=== PATIENT | female | born 1940 | race Caucasian/White ===

== ENCOUNTER 2017-10-20 12:05 | Outpatient (CLI) | payer MEDICARE, OTHER | END 2017-10-20 12:06 | disposition critical access hospital (66) | LOC: EMS 12:05 | PROVIDERS: ATTEND Surgery | DX: R55 Syncope and collapse (principal); R06.00 Dyspnea, unspecified; R05 Cough; R50.9 Fever, unspecified; R19.7 Diarrhea, unspecified | CPT/HCPCS: A0425; A0427 ==

== ENCOUNTER 2017-10-20 12:23 | Observation (INO) | payer MEDICARE, OTHER ==
--- NOTE | 2017-10-20 12:41 | ED Physician Documentation ---
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 Today she was on the commode and she felt weak and lightheaded and slumped to the ground. Her daughter was there in attendance she did not have complete syncope. Review of Systems Constitutional: reports: Fever, Chills, Myalgias, Fatigue, Sweats Eyes: denies: Decreased vision Ears: denies: Ear pain Nose: reports: Congestion. denies: Rhinorrhea / runny nose Throat: denies: Sore throat Cardiac: denies: Chest pain / pressure, Palpitations, Pedal edema, Calf pain Respiratory: reports: Dyspnea, Cough, Wheezing GI: denies: Abdominal Pain, Nausea, Vomiting : denies: Dysuria Skin: denies: Rash Musculoskeletal: denies: Neck pain, Back pain, Extremity pain Neurologic: reports: Generalized weakness, Near syncope. denies: Focal weakness , Numbness PD PAST MEDICAL HISTORY - Past Medical History Past Medical History: Yes Cardiovascular: None Respiratory: None Neuro: None HEENT: None Derm: None - Past Surgical History Past Surgical History: No - Social History Does the pt smoke?: No Smoking Status: Never smoker Does the pt drink ETOH?: Yes Does the pt have substance abuse?: No PD ED PE NORMAL - Vitals Vital signs reviewed: Yes (febrile and hypertensive ) - General General: Alert and oriented X 3, Well developed/nourished, Other (tachypneic at rest) - HEENT HEENT: Atraumatic, PERRL, EOMI, Ears normal, Other (dry mucous membranes) - Neck Neck: Supple, no meningeal sign, No bony TTP - Cardiac Cardiac: RRR, No murmur - Respiratory Respiratory: Other (tachypneic with dimished breath sounds and rhonchi in the left lower lung. ) - Abdomen Abdomen: Soft, Non tender - Back Back: No CVA TTP, No spinal TTP - Derm Derm: Normal color, Warm and dry, No rash - Extremities Extremities: No deformity, No edema - Neuro Neuro: No motor deficit, No sensory deficit Eye Opening: Spontaneous Motor: Obeys Commands Verbal: Oriented GCS Score: 15 - Psych Psych: Normal mood, Normal affect Results - Vitals Vitals: Vital Signs - 24 hr 10/20/17 12:27 Temperature 37.8 C H Heart Rate 79 Respiratory 16 Rate Blood Pressure 138/64 H O2 Saturation 93 Oxygen O2 Source Nasal cannula Oxygen Flow Rate 3 - EKG (time done) 1238 Rate: Rate (enter#) (81) Intervals: RBBB Compare to prior EKG: Old EKG unavailable Computer interpretation: Agree with computer - Labs Labs: Laboratory Tests 10/20/17 10/20/17 10/20/17 12:55 12:55 12:55 WBC 5.3 RBC 4.01 L Hgb 12.9 Hct 37.1 MCV 92.4 MCH 32.2 H MCHC 34.9 RDW 13.9 Plt Count 174 MPV 6.6 L Neut # 4.5 Lymph # 0.2 L [place] # 0.6 Eos # 0.0 Baso # 0.0 Absolute Nucleated RBC 0.00 Nucleated RBC % 0.0 Sodium 136 Potassium 3.4 L Chloride 104 Carbon Dioxide 23 Anion Gap 9.0 BUN 11 Creatinine 0.8 Estimated GFR (MDRD) 69 L Glucose 126 H Lactic Acid Calcium 7.8 L Total Bilirubin 0.9 AST 27 ALT 17 Alkaline Phosphatase 44 Troponin I < 0.04 B-Natriuretic Peptide Total Protein 6.3 L Albumin 3.5 Globulin 2.8 Albumin/Globulin Ratio 1.3 Lipase 25 10/20/17 10/20/17 12:55 12:55 WBC RBC Hgb Hct MCV MCH MCHC RDW Plt Count MPV Neut # Lymph # [place] # Eos # Baso # Absolute Nucleated RBC Nucleated RBC % Sodium Potassium Chloride Carbon Dioxide Anion Gap BUN Creatinine Estimated GFR (MDRD) Glucose Lactic Acid 1.0 Calcium Total Bilirubin AST ALT Alkaline Phosphatase Troponin I B-Natriuretic Peptide 74 Total Protein Albumin Globulin Albumin/Globulin Ratio Lipase - Rads (name of study) 2 veiw chest Radiology: Prelim report reviewed (Impression: 1. Irregular bibasilar opacities , left greater than right, compatible with pneumonic process in the appropriate clinical setting. Aspiration is not excluded. No heart failure.), EMP read indepedently, See rad report Procedures - IVC sono (time) 1234 Bedside IVC sono: IVC measures (cm) (1.19), IVC collapsed c insp (cm) (complete) , Dehydration (est 1 liter deficit) PD MEDICAL DECISION MAKING - ED course Complexity details: reviewed results, re-evaluated patient, considered differential, d/w patient, d/w family ED course: 77-year-old previously well female has developed a cough for the past week and she is now developed near syncope at home comes into the emergency department and on examination has rhonchi in the left base and on chest x-ray has infiltrate in the corresponding area. She is diagnosed with pneumonia and she is hypoxic on room air. Her white blood cell count is normal. She remains mildly tachypneic I believe her volume status is normal after treatment. She is administered rocephin 1gm IV. Departure - Departure Disposition: ED Place in Observation Clinical Impression: Pneumonia Qualifiers: Pneumonia type: due to unspecified organism Laterality: bilateral Lung location : lower lobe of lung Qualified Code(s): J18.1 - Lobar pneumonia, unspecified organism Condition: Stable
[2017-10-20 13:08] LABS: BASOPHILS % (AUTO) 0.2 %; HGB - HEMOGLOBIN 12.9 g/dL (12.0-16.0); LYMPHOCYTES # (AUTO) 0.2 10^3/uL (1.5-3.5); MEAN CORPUSCULAR HEMOGLOBIN 32.2 pg (27.0-31.0); MEAN CORPUSCULAR HGB CONC 34.9 g/dL (32.0-36.0); MEAN CORPUSCULAR VOLUME 92.4 fL (81.0-99.0); MEAN PLATELET VOLUME 6.6 fL (7.9-10.8); MONOCYTES # (AUTO) 0.6 10^3/uL (0.0-1.0); MONOCYTES % (AUTO) 11.5 %; NEUTROPHILS # (AUTO) 4.5 10^3/uL (1.5-6.6); NEUTROPHILS % (AUTO) 84.3 %; PLT - PLATELET COUNT 174 10^3/uL (130-450); RED BLOOD COUNT 4.01 10^6/uL (4.20-5.40); RED CELL DISTRIBUTION WIDTH 13.9 % (12.0-15.0); WHITE BLOOD COUNT 5.3 x10^3/uL (4.8-10.8)
[2017-10-20 13:20] LABS: ALBUMIN 3.5 g/dL (3.2-5.5); ALBUMIN/GLOBULIN RATIO 1.3 (1.0-2.2); BILIRUBIN,TOTAL 0.9 mg/dL (0.2-1.0); CALCIUM 7.8 mg/dL (8.5-10.3); CREATININE 0.8 mg/dL (0.4-1.0); TOTAL PROTEIN 6.3 g/dL (6.7-8.2)
--- NOTE | 2017-10-20 13:36 | XRAY Preliminary Report ---
Exam: XR CHEST 2 VIEW X-RAY IMPRESSION: 1. Irregular bibasilar opacities, left greater than right, compatible with pneumonic process in the a ppropriate clinical setting. Aspiration is not excluded. 2. No heart failure. [facility] SITE ID: [id number]
--- NOTE | 2017-10-20 13:36 | XRAY Report ---
EXAM: CHEST RADIOGRAPHY EXAM DATE: 10/20/2017 01:23 PM. CLINICAL HISTORY: Left sided rhonchi. Cough. Shortness of breath x3 days. COMPARISON: None. TECHNIQUE: 2 views. FINDINGS: Lungs/Pleura: Patchy irregular hazy bibasilar opacities, left more than right. Clear upper lungs. No vascular congestion. No pneumothorax or pleural effusion. Mediastinum: Normal cardiomediastinal silhouette. Other: Degenerative changes of the spine. No acute fracture evident. IMPRESSION: 1. Irregular bibasilar opacities, left greater than right, compatible with pneumonic process in the a ppropriate clinical setting. Aspiration is not excluded. 2. No heart failure. [facility] Referring Provider Line: [phone] SITE ID: [id number]
[2017-10-20] MEDS ORDERED: cefTRIAXone 1 GM in SODIUM CHLORIDE 0.9% MINIBAG 100 ML IV STA (13:40)
[2017-10-20] MEDS ORDERED: ACETAMINOPHEN 325 MG TABLET PO STA ×2 (15:21→15:48)
[2017-10-20] MEDS ORDERED: ACETAMINOPHEN 325 MG TABLET PO PRN (16:29)
[2017-10-20] MEDS ORDERED: MORPHINE 2 MG/ML SYRINGE IVP PRN (16:29)
[2017-10-20] MEDS ORDERED: PROCHLORPERAZINE 10 MG/2 ML VIAL IVP PRN (16:29)
[2017-10-20] MEDS ORDERED: TEMAZEPAM 15 MG CAPSULE PO PRN (16:29)
[2017-10-20] MEDS ORDERED: SODIUM CHLORIDE FLUSH 0.9% 10 ML SYRINGE IVP PRN (16:29)
[2017-10-20] MEDS ORDERED: guaiFENesin/CODEINE 5 ML UDC PO STA (16:38)
[2017-10-20] MEDS ORDERED: LEVALBUTEROL 1.25 MG/3 ML NEB INH PRN (16:40)
[2017-10-20] MEDS ORDERED: POTASSIUM CHLORIDE 20 MEQ TABLET PO STA (16:43)
[2017-10-20] MEDS ORDERED: CYCLOPHOSPHAMIDE 50 MG PO SCH (16:45)
[2017-10-20] MEDS ORDERED: AZITHROMYCIN INJ 500 MG in SODIUM CHLORIDE 0.9% 250 ML IV SCH (18:00)
[2017-10-20] MEDS: SODIUM CHLORIDE 0.9% 1,000 ML IV SCH (18:47)
[2017-10-20] MEDS: SODIUM CHLORIDE FLUSH 0.9% 10 ML SYRINGE IVP SCH (18:48)
[2017-10-20] MEDS: guaiFENesin 600 MG TABLET PO SCH (18:50)
[2017-10-20 20:15] LABS: BILIRUBIN,URINE NEGATIVE (NEGATIVE); GLUCOSE, URINE (UA) NEGATIVE (NEGATIVE); KETONES,URINE (UA) TRACE mg/dL (NEGATIVE); LEUKOCYTE ESTERASE, URINE NEGATIVE (NEGATIVE); NITRITE,URINE NEGATIVE (NEGATIVE); OCCULT BLOOD,URINE TRACE-INTA (NEGATIVE); PROTEIN,URINE 30 mg/dL (NEGATIVE); UROBILINOGEN,URINE 0.2 (NORMAL) E.U./dL (NORMAL)
[2017-10-20 20:18] LABS: CLARITY,URINE CLEAR (CLEAR)
[2017-10-20 20:32] LABS: BACTERIA,URINE None Seen /HPF (None Seen); CASTS, URINE 0-2 Hyaline Casts /LPF; RBC,URINE 0-5 /HPF (0-5); SQUAMOUS EPITHELIAL CELL,UR FEW Squamous (<= Few)
[2017-10-21] MEDS: SODIUM CHLORIDE FLUSH 0.9% 10 ML SYRINGE IVP SCH ×2 (01:40→09:01)
--- NOTE | 2017-10-21 01:57 | HISTORY & PHYSICAL EXAMINATION ---
DATE OF SERVICE: 10/20/2017 Physician: Meka Prescott MD CHIEF COMPLAINT: Near syncope and cough. HISTORY OF PRESENT ILLNESS: This is a 77-year-old white female with a history of multiple myeloma on Cytoxan, otherwise a negative past medical history. 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 She also developed these symptoms approximately 3-4 days ago, but was able to sing despite her cough. Today, she had a "coughing spell that was severe" and with this, she felt near-syncopal. She walked over and sat on the toilet and felt so weak and lightheaded that she slumped to the ground, but her daughter was in front of her near the toilet and helped her down, then called an ambulance because of the marked weakness. In the ER, she was found to have pneumonia, hypoxia with saturations of 88% on room air. PAST MEDICAL HISTORY: Multiple myeloma on Cytoxan. REVIEW OF SYSTEMS: There has been no fever, hemoptysis, dyspnea on exertion, PND, angina or palpitations. 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 She is not aware of being allergic to cats, however. A comprehensive review of systems was performed and the pertinent positives are above, the rest are negative. FAMILY HISTORY: No inherited diseases. SOCIAL HISTORY: The patient lives alone, she is a nonsmoker who never smoked, drinks alcohol socially, does not use illicit drugs. ALLERGIES: NO KNOWN ALLERGIES. MEDICATIONS 1. Acyclovir 400 mg t.i.d. p.r.n. 2. Loperamide 2 mg t.i.d. p.r.n. 3. Cytoxan 50 mg every other day. 4. Calcium replacement 625 mg daily. 5. Baby aspirin daily. 6. Coenzyme Q-10 100 mg daily. 7. [place] 3 one capsule daily. 8. Multivitamin daily. PHYSICAL EXAMINATION GENERAL: Thin, elderly, white female. She has mild hoarseness. She has no respiratory distress, currently on oxygen by nasal cannula. VITAL SIGNS: Blood pressure 135/76 and she was not hypotensive in the emergency room. Temperature is elevated at 37.8, respiratory rate is 23, pulse 73 in sinus rhythm. Oxygen was 88% on room air, increased to 96% on 3 liters nasal cannula. HEENT: Reveals moist oral mucosa. She is anicteric. She has mild hoarseness when speaking and she has a nonproductive cough. NECK: No JVD or carotid bruits. CHEST: Diffuse rales on both sides. No wheezes or rhonchi. HEART: Sounds are distant. No audible murmurs. No gallop. No heave. ABDOMEN: Soft with positive bowel sounds. Nontender. EXTREMITIES: No edema. No clubbing or cyanosis. NEUROLOGIC: Intact. LABORATORY DATA: Normal electrolytes, except potassium 3.4. Normal lactic acid at 1.0. Normal liver tests. Normal bilirubin. BNP 74. Troponin less than 0.04. White blood count 5.3, hemoglobin 12.9, platelet count normal at 174. Chest x-ray: Bilateral pneumonia. EKG: Normal sinus rhythm, right bundle branch block and inferior Q waves are present. There is no old EKG available for comparison. IMPRESSION/DIAGNOSES 1. Community-acquired pneumonia, bilateral, in the bases. 2. Near syncope following a cough. 3. Multiple myeloma on Cytoxan. 4. Abnormal electrocardiogram with both right bundle branch block and possible inferior Q waves. PLAN: Place the patient in observation. Begin telemetry. Cycle troponins to rule out a cardiac event. Continue with her aspirin. Continue with her Cytoxan at its current dose. An Echo will also be ordered for structural heart disease because of the near syncope. Her symptoms, however, sounded very much like cough syncope, which is usually from excessive Valsalva maneuvers plus suggests volume depletion. Begin gentle hydration. Treat the pneumonia using empiric IV ceftriaxone and Zithromax. Obtain cultures of blood and sputum prior to instituting antibiotics. I will order a trial of nebulizers because of the nonproductive nature of her cough and the suspicion of possible allergies causing bronchospasm. Add Mucinex and Robitussin as needed for the cough. DEEP VENOUS THROMBOSIS PROPHYLAXIS: SCDs. CODE STATUS: FULL CODE. ATTESTATION: The patient is expected to be discharged or transferred to another facility within 96 hours: Yes. TD: 10/20/2017 18:51 RASHAWN
[2017-10-21 04:52] LABS: BASOPHILS % (AUTO) 0.2 %; EOSINOPHILS % (AUTO) 0.1 %; HGB - HEMOGLOBIN 11.6 g/dL (12.0-16.0); LYMPHOCYTES # (AUTO) 0.5 10^3/uL (1.5-3.5); MEAN CORPUSCULAR HEMOGLOBIN 31.8 pg (27.0-31.0); MEAN CORPUSCULAR HGB CONC 34.3 g/dL (32.0-36.0); MEAN CORPUSCULAR VOLUME 92.5 fL (81.0-99.0); MEAN PLATELET VOLUME 6.6 fL (7.9-10.8); MONOCYTES # (AUTO) 0.4 10^3/uL (0.0-1.0); MONOCYTES % (AUTO) 6.3 %; NEUTROPHILS # (AUTO) 5.2 10^3/uL (1.5-6.6); NEUTROPHILS % (AUTO) 85.4 %; PLT - PLATELET COUNT 148 10^3/uL (130-450); RED BLOOD COUNT 3.65 10^6/uL (4.20-5.40); RED CELL DISTRIBUTION WIDTH 13.8 % (12.0-15.0); WHITE BLOOD COUNT 6.1 x10^3/uL (4.8-10.8)
[2017-10-21 05:01] LABS: CALCIUM 7.7 mg/dL (8.5-10.3); CREATININE 0.8 mg/dL (0.4-1.0)
[2017-10-21] MEDS: SODIUM CHLORIDE 0.9% 1,000 ML IV SCH (05:51)
[2017-10-21 07:18] VITALS: BP 141/73
[2017-10-21] MEDS: guaiFENesin 600 MG TABLET PO SCH (08:59)
[2017-10-21] MEDS ORDERED: CYCLOPHOSPHAMIDE 50 MG PO SCH ×3 (09:00)
[2017-10-21] MEDS ORDERED: FAMOTIDINE 20 MG TABLET PO SCH (09:00)
[2017-10-21] MEDS ORDERED: ASPIRIN EC 81 MG TABLET PO SCH (09:00)
[2017-10-21] MEDS ORDERED: POLYETHYLENE GLYCOL 3350 17 GM PACKET PO SCH (09:00)
[2017-10-21] MEDS ORDERED: cefTRIAXone 1 GM in SODIUM CHLORIDE 0.9% MINIBAG 100 ML IV SCH (09:00)
[2017-10-21] MEDS ORDERED: POTASSIUM CHLORIDE 20 MEQ TABLET PO ONE (09:05)
--- NOTE | 2017-10-21 09:11 | Discharge Plan ---
Discharge Plan Disposition: Home, Self Care Condition: Stable Prescriptions: Azithromycin 250 mg PO DAILY #5 tablet guaiFENesin/CODEINE [Robitussin AC] 5 ml PO Q6H #100 udc Levofloxacin [Levaquin] 750 mg PO DAILY #5 tablet Diet: Regular Activity Restrictions: Activity as Tolerated Shower Restrictions: No Driving Restrictions: No Additional Instructions or Follow Up instructions: You were admitted to the hospital because of severe coughing, shortness of breath and were found to have pneumonia. We also consider you immunocompromised because you are on Cytoxan for your multiple myeloma. So far the preliminary sputum culture shows something called gram-positive cocci. You have improved between yesterday and today and wanted to go home today. Since you are eating well, able to get up by herself without assistance, and you need no oxygen, we think you can go home safely. However if you develop fevers, shaking chills, more shortness of breath, and cannot keep food down, you need to come back. You have recently moved to the [place] and do not have a primary care provider. You have identified Dr. Carey, your oncologist, as you are primary provider while you are being treated for multiple myeloma. I have called his office and you have an appointment for 1:30 on Friday, October 28. They will check labs for a CBC and a BMP. And then he will see you after your labs. Please make sure you finish taking the antibiotics we have started you on. It is very important. I have also added a probiotic to maintain bowel health. You are already prone to diarrhea and I hope this will help. I have also sent you home with a cough medicine to help you sleep at night. You can take it as needed. You also have identified a need to establish yourself with a primary care provider. Case Management will be giving you a list of providers you can call. No Smoking: If you smoke, Please STOP! Call for help.
[2017-10-21] MEDS ORDERED: SACCHAROMYCES BOULARDII 250 MG CAPSULE PO SCH (10:00)
--- NOTE | 2017-10-22 07:25 | DISCHARGE SUMMARY ---
Physician: Donya Chairez MD DATE OF ADMISSION: 10/20/2017 DATE OF DISCHARGE: 10/21/2017 DISCHARGE DIAGNOSES 1. Community-acquired pneumonia. 2. Cough with Syncope syndrome. 3. Multiple myeloma. 4. Abnormal EKG. DISCHARGE MEDICATIONS 1. Levaquin 750 mg p.o. daily, #5, new prescription. 2. Robitussin-AC 5 mL every 6 hours as needed, 100 mL dispensed, new prescription. 3. Azithromycin 250 mg p.o. daily, #5, new prescription. 4. Acyclovir 400 mg p.o. t.i.d. 5. Aspirin 81 mg p.o. daily. 6. Loperamide 2 mg p.o. t.i.d. p.r.n. 7. Theragran vitamin daily. 8. [place]-3 fish oil daily. 9. Coenzyme Q10 one capsule daily. 10. Recommend she buy lactobacillus probiotic over the counter for use twice a day. PRINCIPAL PROCEDURES 1. Chest x-ray with irregular bibasilar opacities, left greater than right, compatible with a pneumonic process, no heart failure. 2. PRELIMINARY Echocardiogram. Overall, left ventricular systolic function is normal with an estimated ejection fraction of 70% to 75%. Diastolic function is indeterminate. Right ventricle normal in size and function. Both atria normal in size. No significant valvular heart disease. Right ventricular systolic pressure at rest is 33 mmHg. 3. Respiratory culture preliminary, culture in progress. Results need to be followed up on. 4. Blood cultures no growth after 1 day. HOSPITAL COURSE: The patient is a 77-year-old white female who has multiple myeloma and is on Cytoxan. She is followed by Dr. Carey, at [facility]. She recently moved to the [place] in the last few months and has not had time to establish herself with a primary care provider. She relies on Dr. Carey for all of her medical needs at this time. 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 She had increasing cough, increasing shortness of breath. She had fever, chills , sweats, nasal congestion, rhinorrhea, and green phlegm. 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 One other person got pneumonia. This morning she woke up and was a little bit altered according to her daughter. She just seemed really tired, vague in her affect. She got up to go to the bathroom, and as she got up to go to the bathroom, she started getting very lightheaded, she turned blair, was incontinent of stool and had syncope. It was not complete syncope. The patient was still able to speak but was confused. The daughter tried to help her by keeping her head upright and never really let get down to the floor to lie down. She was brought to the emergency room were temperature was 37.8 and she required 3 liters nasal cannula to saturate her at 93%. Her white cell count was normal at 5.3, hemoglobin was 12.9. Electrolytes showed hypokalemia, troponin was negative, and a lactic acid was 1. BNP was 74. Chest x-ray showed bibasilar infiltrates. HOSPITAL COURSE: The patient was actually oxygenating well, sitting up in bed in the emergency room without any respiratory distress. She was obviously quite ill with a pneumonia as seen on chest x-ray and lung exam confirmed diffuse coarse rhonchi with coughing spasms , but she was not hypoxic, and in no acute respiratory distress. As such, she was placed in observation. She was started on empiric antibiotic therapy with Rocephin and azithromycin. Echocardiogram was done and preliminary results are as above. It was noted that she is immunocompromised because of the Cytoxan for her multiple myeloma. It is also noted that Cytoxan can be associated with pneumonitis. Abnormal EKG was evaluated with a troponin and the troponin was negative. The patient shares that she had some type of ablation procedure in the past and that may be why her EKG is abnormal. Overnight, she did quite well. On the morning of discharge, she was sitting up , grimacing at the bad breakfast that was given to her. She says she can eat much better at home. She remained afebrile during her stay. Her highest temperature was in the Emergency Department at 37.8 and by the next morning was 36.9. She was 99% on room air and would go down to 95% on room air. Respiratory rate and pulse rate were stable. Cough was intermittent and controlled. Echocardiogram was done for the possible near syncope and results are as above. On telemetry, she remained in sinus rhythm throughout her overnight stay. We think she had orthostatic syncope or she has cough syncope syndrome because she described the cough as severe. On the morning of discharge, the patient was adamant that she really could go home. She said she would eat much better for one thing.As such, the patient was felt stable enough to go home. She was carefully instructed to return to us if she had fever spikes, rigors, lightheadedness, more diarrhea. She states that she has diarrhea and is prone to diarrhea in the past. She had loose stool when she nearly passed out, as such, she will go home on probiotic as well. Because she does not have a primary care provider yet, we have [place]. She is strongly encouraged to make an appointment with one of those offices and be seen in the next month to 2 months. In the meantime, she can be seen by Dr. Carey, who she designates as her all around physician, even though he is an oncologist. She has an appointment to see him on Friday, October 28 at 1:30 in the afternoon. A CBC and a BMP will be done before she goes in to see him. I have held her cytoxan until she completes her antibiotics and sees Dr. Carey. He will need to review the final report of the Echocardiogram and to look at the final sputum culture results. A copy of this discharge summary has been sent to his office at [phone] by me. Her daughter came to pick her up. I spent 45 minutes answering all of her questions. At discharge, temperature was 36.9, pulse was 70 and regular, blood pressure 141 /73, and she was 16 respirations per minute, 99% on room air down to 95% on room air. She still had a nasal tone of voice, mild rhinorrhea, coarse, coarse rhonchi diffusely in both lung louise, but no egophony. No tactile fremitus. No increased respiratory effort and she was comfortable. She did have an occasional cough during her exam. The abdomen was benign. She was without clubbing, cyanosis or edema. She was able to sit up, stand up, walk in room and bathroom without assist or increased respiratory effort. TD: 10/21/2017 16:21 RASHAWN
== END 2017-10-21 12:04 | disposition home or self-care (01) ==
LOC: ED 12:23 → OBS 16:29
PROVIDERS: ADMIT Internal Medicine; ATTEND Specialist
DX: J18.1 Lobar pneumonia, unspecified organism (principal); R55 Syncope and collapse; E86.0 Dehydration; E87.6 Hypokalemia; R09.02 Hypoxemia; C90.00 Multiple myeloma not having achieved remission; Z79.82 Long term (current) use of aspirin; Z79.899 Other long term (current) drug therapy
CPT/HCPCS: 36415; 71046; 80048; 80053; 81001; 83605; 83690; 83880; 84484; 85025; 87040; 87070; 87205; 93005; 93306; 96365; 96366; 96367; 99283; 99284; A9270; G0378; 81003; 87086

== ENCOUNTER 2018-05-14 09:34 | Outpatient (CLI) | payer MEDICARE, OTHER ==
--- NOTE | 2018-05-14 10:56 | XRAY Report ---
Reason: ANKLE PAIN,LEFT Procedure Date: 05/14/2018 Accession Number: [id number] / [id number] Procedure: XR - Ankle 3 View LT CPT Code: FULL RESULT: EXAM: LEFT ANKLE RADIOGRAPHY EXAM DATE: 05/14/2018 09:55 AM. CLINICAL HISTORY: Ankle pain, left. COMPARISON: None. TECHNIQUE: 3 views. FINDINGS: Bones: Remote posttraumatic changes are seen along the distal fibula as well as the medial malleolus. Superimposed on this is a sharply marginated not well-corticated osseous fragment along the medial malleolus. This is suspicious for fracture. Joints: There is a small tibiotalar joint effusion. No subluxations. The ankle mortise remains normally aligned. Soft Tissues: Mild soft tissue swelling in the ankle region, more pronounced medially. IMPRESSION: Suspect acute fracture along the medial malleolus. [facility]
== END 2018-05-14 09:35 | disposition home or self-care (01) ==
LOC: DI 09:34
PROVIDERS: ATTEND Physician Assistant Medical
DX: M25.572 Pain in left ankle and joints of left foot (principal)

== ENCOUNTER 2019-03-08 10:28 | Outpatient (CLI) | payer MEDICARE, OTHER ==
--- NOTE | 2019-03-09 09:03 | Mammography Report ---
Reason: ROUTINE MAMMO Procedure Date: 03/08/2019 Accession Number: [id number] / [id number] Procedure: [facility] - Screening Mammo w/Rambo CPT Code: FULL RESULT: EXAM: Screening Mammo w/Rambo DATE: 03/08/2019 11:11 AM CLINICAL HISTORY: Screening TECHNIQUE: (B) - Bilateral CC and MLO views were obtained. COMPARISON: 03/05/2018, 01/24/2017 PARENCHYMAL PATTERN: (A) - The breasts demonstrate scattered fibroglandular densities bilaterally. FINDINGS: There is a single view left breast subareolar asymmetry seen only on MLO 2-D and 3-D mammography. Otherwise, there are are no suspicious masses, calcifications, or areas of distortion. IMPRESSION: Incomplete examination. BI-RADS category 0. RECOMMENDATION: (ADDMU) - Additional views using both Mammography and Ultrasound recommended. BI-RADS CATEGORY: (0) - Incomplete Examination - need additional evaluation. STANDARD QUALIFYING STATEMENTS: 1. This examination was not reviewed with the aid of Computer-Aided Detection (CAD). 2. A negative or benign imaging report should not preclude biopsy if clinically suspicious findings are present. 3. Dense breasts may obscure an underlying neoplasm. 4. This examination was reviewed with the aid of 3D breast imaging (tomosynthesis).
== END 2019-03-08 10:29 | disposition home or self-care (01) ==
LOC: DI 10:28
DX: Z12.31 Encounter for screening mammogram for malignant neoplasm of breast (principal); R92.8 Other abnormal and inconclusive findings on diagnostic imaging of breast
CPT/HCPCS: 77063; 77067

== ENCOUNTER 2019-04-19 12:31 | Outpatient (CLI) | payer MEDICARE, OTHER ==
--- NOTE | 2019-04-19 15:12 | Mammography Report ---
Reason: ABN MAMMO - SPEC VIEWS LEFT Procedure Date: 04/19/2019 Accession Number: [id number] / [id number] Procedure: [facility] - Diag Special Views Dig LT CPT Code: Final Report FULL RESULT: EXAM: Diag Special Views Dig LT DATE: 04/19/2019 1:27 PM CLINICAL HISTORY: Recall from recent screening for one view asymmetry left MLO view. TECHNIQUE: (L) - Left CC and ML views were obtained. COMPARISON: 03/08/2019 through 12/12/2014 PARENCHYMAL PATTERN: (A) - The breasts demonstrate scattered fibroglandular densities bilaterally. FINDINGS: Left breast: Finding recalled from recent screening does not persist on additional views and returns to its baseline appearance consistent with summation of normal tissues. There are no suspicious masses, calcifications, or areas of distortion. IMPRESSION: Negative examination. BI-RADS category 1. RECOMMENDATION: (ANNUAL) - Recommend routine annual screening mammography. BI-RADS CATEGORY: (1) - Negative. STANDARD QUALIFYING STATEMENTS: 1. This examination was not reviewed with the aid of Computer-Aided Detection (CAD). 2. A negative or benign imaging report should not preclude biopsy if clinically suspicious findings are present. 3. Dense breasts may obscure an underlying neoplasm. 4. This examination was reviewed with the aid of 3D breast imaging (tomosynthesis).
== END 2019-04-19 12:32 | disposition home or self-care (01) ==
LOC: DI 12:31
PROVIDERS: ATTEND Internal Medicine Medical Oncology
DX: R92.8 Other abnormal and inconclusive findings on diagnostic imaging of breast (principal)

== ENCOUNTER 2020-02-16 13:00 | Emergency (ER) | payer MEDICARE, OTHER ==
[2020-02-16] MEDS ORDERED: ACETAMINOPHEN 325 MG TABLET PO STA (13:42)
[2020-02-16] MEDS ORDERED: SODIUM CHLORIDE 0.9% 1,000 ML IV STA ×2 (13:42→15:10)
--- NOTE | 2020-02-16 13:44 | ED Physician Documentation ---
History of Present Illness - Stated complaint Stated Complaint: FEVER/FOGGY HEAD - Chief complaint Chief Complaint: General - History obtained from History obtained from: Patient, Family (daughter) - Additonal information Additional information: 79-year-old woman with history of multiple myeloma on oral chemotherapeutic agent presents with 4 days of fever. Starting Friday and also a bit today she i s mildly confused. No cough, urinary complaints, runny nose, loss of taste or smell, sore throat, rashes. No abdominal pain. Review of Systems Ten Systems: 10 systems reviewed and negative Constitutional: reports: Fever, Chills Nose: denies: Rhinorrhea / runny nose Throat: denies: Sore throat Respiratory: denies: Cough GI: reports: Diarrhea (Chronically from her chemotherapeutic agent). denies: Vomiting PD PAST MEDICAL HISTORY - Past Medical History Cardiovascular: None Respiratory: None Neuro: None HEENT: None Derm: None - Past Surgical History Past Surgical History: No - Present Medications Home Medications: Ambulatory Orders Medication Instructions Recorded Confirmed Acyclovir 400 mg PO TID PRN 10/20/17 10/20/17 Aspirin [Adult Low Dose Aspirin EC] 81 mg PO DAILY 10/20/17 10/20/17 Calcium Polycarbophil 625 mg PO DAILY 10/20/17 10/20/17 Loperamide HCl [Loperamide] 2 mg PO TID PRN 10/20/17 10/20/17 Multivitamin [Theragran] 1 each PO DAILY 10/20/17 10/20/17 [place]-3 Fatty Acids/Fish Oil [Fish 1 cap PO DAILY 10/20/17 10/20/17 Oil 1,000 mg Softgel] Ubidecarenone [Coenzyme Q-10] 100 mg PO DAILY 10/20/17 10/20/17 Azithromycin 250 mg PO DAILY #5 tablet 10/21/17 Levofloxacin [Levaquin] 750 mg PO DAILY #5 tablet 10/21/17 guaiFENesin/CODEINE [Robitussin AC] 5 ml PO Q6H #100 udc 10/21/17 Ciprofloxacin HCl [Cipro] 500 mg PO BID #20 tablet 02/16/20 - Allergies Allergies/Adverse Reactions: Allergies Allergy/AdvReac Type Severity Reaction Status Date / Time No Known Drug Allergies Allergy Verified 02/16/20 13:31 - Social History Does the pt smoke?: No Smoking Status: Never smoker Does the pt drink ETOH?: Yes Does the pt have substance abuse?: No - Family History Family history: reports: Non contributory PD ED PE NORMAL - Vitals Vital signs reviewed: Yes - General General: Alert and oriented X 3 (Slightly slow to answer questions) - HEENT HEENT: PERRL, EOMI - Neck Neck: Supple, no meningeal sign, No bony TTP - Cardiac Cardiac: RRR, No murmur - Respiratory Respiratory: No respiratory distress, Clear bilaterally - Abdomen Abdomen: Soft, Non tender - Back Back: No spinal TTP - Derm Derm: No rash - Extremities Extremities: No edema - Neuro Neuro: Alert and oriented X 3, No motor deficit, No sensory deficit, Normal speech Results - Vitals Vitals: Vital Signs - 24 hr 02/16/20 02/16/20 02/16/20 13:20 14:01 14:30 Temperature 38.9 C H Heart Rate 73 77 77 Respiratory 18 21 19 Rate Blood Pressure 179/68 H 159/63 H 170/69 H O2 Saturation 100 95 96 02/16/20 15:00 Temperature Heart Rate 72 Respiratory 20 Rate Blood Pressure 160/71 H O2 Saturation 99 Oxygen O2 Source Room air - Labs Labs: Laboratory Tests 02/16/20 02/16/20 02/16/20 13:45 14:14 14:14 WBC 2.9 L RBC 3.31 L Hgb 11.0 L Hct 32.6 L MCV 98.5 MCH 33.2 H MCHC 33.7 RDW 14.6 Plt Count 162 MPV 9.5 Neut # (Auto) Not Reportable Lymph # (Auto) Not Reportable [place] # (Auto) Not Reportable Eos # (Auto) Not Reportable Baso # (Auto) Not Reportable Absolute Nucleated RBC Not Reportable Total Counted 100 Band Neuts % (Manual) 1 Abnorm Lymph % (Manual) 0 Nucleated RBC % Not Reportable Neutrophils # (Manual) 2.3 Lymphocytes # (Manual) 0.4 L Monocytes # (Manual) 0.2 Eosinophils # (Manual) 0.0 Basophils # (Manual) 0.0 Differential Comment MANUAL DIFFERENTIAL Manual Slide Review Indicated WBC Morphology NORMAL APPEARANCE Platelet Estimate NORMAL (130-450,000) Platelet Morphology NORMAL APPEARANCE RBC Morph Micro Appear NORMAL APPEARANCE Sodium 132 L Potassium 3.7 Chloride 99 L Carbon Dioxide 25 Anion Gap 8.0 BUN 19 Creatinine 0.9 Estimated GFR (MDRD) 60 L Glucose 110 H Lactic Acid Calcium 8.5 Total Bilirubin 0.6 AST 24 ALT 23 Alkaline Phosphatase 44 Total Protein 6.6 L Albumin 3.6 Globulin 3.0 Albumin/Globulin Ratio 1.2 Lipase 53 H Urine Color YELLOW Urine Clarity CLEAR Urine pH 6.0 Ur Specific [place] 1.020 Urine Protein 30 H Urine Glucose (UA) NEGATIVE Urine Ketones NEGATIVE Urine Occult Blood TRACE-INTA Urine Nitrite POSITIVE H Urine Bilirubin NEGATIVE Urine Urobilinogen 0.2 (NORMAL) Ur Leukocyte Esterase NEGATIVE Urine RBC 0-5 Urine WBC 11-25 H Ur Squamous Epith Cells NONE SEEN Urine Bacteria Many H Ur Microscopic Review INDICATED Urine Culture Comments INDICATED 02/16/20 14:14 WBC RBC Hgb Hct MCV MCH MCHC RDW Plt Count MPV Neut # (Auto) Lymph # (Auto) B[place]le # (Auto) Eos # (Auto) Baso # (Auto) Absolute Nucleated RBC Total Counted Band Neuts % (Manual) Abnorm Lymph % (Manual) Nucleated RBC % Neutrophils # (Manual) Lymphocytes # (Manual) Monocytes # (Manual) Eosinophils # (Manual) Basophils # (Manual) Differential Comment Manual Slide Review WBC Morphology Platelet Estimate Platelet Morphology RBC Morph Micro Appear Sodium Potassium Chloride Carbon Dioxide Anion Gap BUN Creatinine Estimated GFR (MDRD) Glucose Lactic Acid 1.0 Calcium Total Bilirubin AST ALT Alkaline Phosphatase Total Protein Albumin Globulin Albumin/Globulin Ratio Lipase Urine Color Urine Clarity Urine pH Ur Specific [place] Urine Protein Urine Glucose (UA) Urine Ketones Urine Occult Blood Urine Nitrite Urine Bilirubin Urine Urobilinogen Ur Leukocyte Esterase Urine RBC Urine WBC Ur Squamous Epith Cells Urine Bacteria Ur Microscopic Review Urine Culture Comments - Rads (name of study) 2v chest Radiology: EMP read contemporaneously (NAD) PD MEDICAL DECISION MAKING - ED course ED course: 79-year-old woman presents with fever and mild encephalopathy which improved after the administration of IV fluids and Tylenol. Work-up demonstrates evidence of UTI. Low normal white count likely due to the chemotherapeutic agents for her multiple myeloma. Vital signs reassuring. No evidence of sepsis otherwise. Given IV Rocephin here and Cipro prescription pending urine culture. Departure - Departure Disposition: Home, Self Care Clinical Impression: Pyelonephritis Fever Qualifiers: Fever type: due to other condition Qualified Code(s): R50.81 - Fever presenting with conditions classified elsewhere Condition: Good Record reviewed to determine appropriate education?: Yes Instructions: Pyelonephritis Dc Follow-Up: Eber Acosta MD [Provider Admit Priv/Credential] - (For consideration for moving your oncologic care.) Prescriptions: Ciprofloxacin HCl [Cipro] 500 mg PO BID #20 tablet Comments: We will culture your urine, the results should be done in 48-72 hours. If an antibiotic change is necessary we will call you. Return if worse in the meantime, especially if you develop increasing flank pain, fevers, or cannot keep down the medication.
[2020-02-16 13:57] LABS: BILIRUBIN,URINE NEGATIVE (NEGATIVE); GLUCOSE, URINE (UA) NEGATIVE (NEGATIVE); KETONES,URINE (UA) NEGATIVE (NEGATIVE); LEUKOCYTE ESTERASE, URINE NEGATIVE (NEGATIVE); NITRITE,URINE POSITIVE (NEGATIVE); OCCULT BLOOD,URINE TRACE-INTA (NEGATIVE); PROTEIN,URINE 30 mg/dL (NEGATIVE); UROBILINOGEN,URINE 0.2 (NORMAL) E.U./dL (NORMAL)
[2020-02-16 14:06] LABS: CLARITY,URINE CLEAR (CLEAR)
--- NOTE | 2020-02-16 14:13 | XRAY Report ---
PROCEDURE: Chest 2 View X-Ray INDICATIONS: fever TECHNIQUE: 2 view(s) of the chest. COMPARISON: None. FINDINGS: Surgical changes and devices: None. Lungs and pleura: No pleural effusions or pneumothorax. Lungs are clear. Mediastinum: Mediastinal contours are normal. Heart size is normal. Bones and chest wall: No suspicious bony abnormalities. Soft tissues appear unremarkable. IMPRESSION: No acute cardiopulmonary pathology. Reviewed by: Denilson Turner MD on 02/16/2020 2:11 PM PDT Approved by: Denilson Turner MD on 02/16/2020 2:11 PM PDT Station ID: [id number]
[2020-02-16 14:26] LABS: BASOPHILS % (AUTO) 0.3 %; LYMPHOCYTES % (AUTO) 10.6 %; MEAN CORPUSCULAR HEMOGLOBIN 33.2 pg (27.0-31.0); MEAN CORPUSCULAR HGB CONC 33.7 g/dL (32.0-36.0); MEAN CORPUSCULAR VOLUME 98.5 fL (81.0-99.0); MEAN PLATELET VOLUME 9.5 fL (7.9-10.8); MONOCYTES % (AUTO) 11.9 %; NEUTROPHILS % (AUTO) 76.2 %; PLT - PLATELET COUNT 162 10^3/uL (130-450); RED BLOOD COUNT 3.31 10^6/uL (4.20-5.40); RED CELL DISTRIBUTION WIDTH 14.6 % (12.0-15.0); WHITE BLOOD COUNT 2.9 x10^3/uL (4.8-10.8)
[2020-02-16 14:34] LABS: ABNORMAL LYMPHS % (MANUAL) 0 %
[2020-02-16 14:39] LABS: ALBUMIN 3.6 g/dL (3.2-5.5); ALBUMIN/GLOBULIN RATIO 1.2 (1.0-2.2); BILIRUBIN,TOTAL 0.6 mg/dL (0.2-1.0); CALCIUM 8.5 mg/dL (8.5-10.3); CREATININE 0.9 mg/dL (0.4-1.0); TOTAL PROTEIN 6.6 g/dL (6.7-8.2)
[2020-02-16 14:41] LABS: BACTERIA,URINE Many /HPF (None Seen); RBC,URINE 0-5 /HPF (0-5); SQUAMOUS EPITHELIAL CELL,UR NONE SEEN (<= Few)
[2020-02-16 14:44] LABS: BAND NEUTROPHILS % (MANUAL) 1 %; DIFFERENTIAL COMMENT MANUAL DIFFERENTIAL; LYMPHOCYTES # (MANUAL) 0.4 10^3/uL (1.5-3.5); LYMPHOCYTES % (MANUAL) 13 %; MONOCYTES # (MANUAL) 0.2 10^3/uL (0.0-1.0); PLATELET ESTIMATE, MANUAL NORMAL (130-450,000) (NORMAL); PLATELET MORPHOLOGY NORMAL APPEARANCE (NORMAL); RBC MORPHOLOGY (MULTIPLE) NORMAL APPEARANCE (NORMAL)
[2020-02-16] MEDS ORDERED: cefTRIAXone 1 GM in SODIUM CHLORIDE 0.9% MINIBAG 100 ML IV STA (15:10)
[2020-02-16 15:33] VITALS: BP 165/89
--- NOTE | 2020-02-17 07:25 | ED Physician Documentation ---
ED Addendum - Addendum Addendum: 02/17/20 07:23 A blood culture preliminary resulted during the night showing gram negative bacilli. The patient was here for fever and confusion and was found to have a UTI. Discharged on Cipro. We will call the patient back and have her return for further evaluation. Presumed outcome would be admission for bacteremic early sepsis
== END 2020-02-16 17:30 | disposition home or self-care (01) ==
LOC: ED 13:00
DX: G93.40 Encephalopathy, unspecified (principal); R50.81 Fever presenting with conditions classified elsewhere; N12 Tubulo-interstitial nephritis, not specified as acute or chronic; C90.00 Multiple myeloma not having achieved remission; Z79.899 Other long term (current) drug therapy; Z20.828 Contact with and (suspected) exposure to other viral communicable diseases
CPT/HCPCS: 36415; 71046; 80053; 81001; 81599; 83605; 83690; 85025; 87040; 87077; 87086; 87181; 96361; 96365; 99284; A9270; U0004; 81003

== ENCOUNTER 2020-02-17 09:29 | Inpatient (IN) | payer MEDICARE ==
[2020-02-17] MEDS ORDERED: cefTRIAXone 1 GM VIAL IVP STA (10:00)
[2020-02-17] MEDS ORDERED: GENTAMICIN IV SCH (10:00)
[2020-02-17] MEDS ORDERED: SODIUM CHLORIDE 0.9% IV SCH (10:00)
--- NOTE | 2020-02-17 10:03 | ED Physician Documentation ---
PD HPI FEMALE - Stated complaint Stated Complaint: BLOOD CULTURE FOLLOW UP - Chief complaint Chief Complaint: General - History obtained from History obtained from: Patient - History of Present Illness Timing - onset: How many days ago (few) Timing - duration: Days (She has been feeling general malaise and lightheaded for a few days. Seen yesterday for fever and general weakness and diagnosed with a UTI. Concern for sepsis her white count was slightly low. Lactate was negative. Given IV Rocephin and discharged on Cipro for UTI. Blood cultures positive.) Timing - details: Gradual onset, Still present (She is feeling improved today without any fevers but still general weakness and malaise and mild chills) Associated symptoms: Fever (yesterday), Dysuria Similar symptoms before: Has not had sx before Recently seen: Emergency Dept (yesterday) Review of Systems Constitutional: reports: Fever (yesterday), Chills (today still), Myalgias (several days) Nose: denies: Rhinorrhea / runny nose, Congestion Throat: denies: Sore throat Cardiac: denies: Chest pain / pressure Respiratory: denies: Dyspnea, Cough GI: reports: Nausea (mild). denies: Abdominal Pain, Vomiting PD PAST MEDICAL HISTORY - Past Medical History Cardiovascular: None Respiratory: None Neuro: None HEENT: None Derm: None - Past Surgical History Past Surgical History: No - Present Medications Home Medications: Ambulatory Orders Medication Instructions Recorded Confirmed Acyclovir 400 mg PO TID PRN 10/20/17 10/20/17 Aspirin [Adult Low Dose Aspirin EC] 81 mg PO DAILY 10/20/17 10/20/17 Calcium Polycarbophil 625 mg PO DAILY 10/20/17 10/20/17 Loperamide HCl [Loperamide] 2 mg PO TID PRN 10/20/17 10/20/17 Multivitamin [Theragran] 1 each PO DAILY 10/20/17 10/20/17 [place]-3 Fatty Acids/Fish Oil [Fish 1 cap PO DAILY 10/20/17 10/20/17 Oil 1,000 mg Softgel] Ubidecarenone [Coenzyme Q-10] 100 mg PO DAILY 10/20/17 10/20/17 Azithromycin 250 mg PO DAILY #5 tablet 10/21/17 Levofloxacin [Levaquin] 750 mg PO DAILY #5 tablet 10/21/17 guaiFENesin/CODEINE [Robitussin AC] 5 ml PO Q6H #100 udc 10/21/17 Ciprofloxacin HCl [Cipro] 500 mg PO BID #20 tablet 02/16/20 - Allergies Allergies/Adverse Reactions: Allergies Allergy/AdvReac Type Severity Reaction Status Date / Time No Known Drug Allergies Allergy Verified 02/17/20 09:41 - Social History Does the pt smoke?: No Smoking Status: Never smoker Does the pt drink ETOH?: Yes Does the pt have substance abuse?: No PD ED PE NORMAL - Vitals Vital signs reviewed: Yes - General General: Alert and oriented X 3, No acute distress, Well developed/nourished - HEENT HEENT: Pharynx benign - Neck Neck: Supple, no meningeal sign, No adenopathy - Cardiac Cardiac: RRR, No murmur - Respiratory Respiratory: Clear bilaterally - Abdomen Abdomen: Soft, Non tender - Back Back: No CVA TTP - Derm Derm: Normal color, Warm and dry - Extremities Extremities: Normal ROM s pain, No edema, No calf tenderness / cord - Neuro Neuro: Alert and oriented X 3, No motor deficit, Normal speech Results - Vitals Vitals: Vital Signs - 24 hr 02/17/20 09:32 Temperature 37.9 C H Heart Rate 70 Respiratory 16 Rate Blood Pressure 150/57 H O2 Saturation 97 Oxygen O2 Source Room air - Labs Labs: Laboratory Tests 02/17/20 02/17/20 02/17/20 10:06 10:06 10:06 WBC 2.1 L RBC 3.13 L Hgb 10.6 L Hct 30.9 L MCV 98.7 MCH 33.9 H MCHC 34.3 RDW 14.7 Plt Count 145 MPV 9.7 Manual Slide Review Indicated Sodium 136 Potassium 3.1 L Chloride 105 Carbon Dioxide 22 Anion Gap 9.0 BUN 14 Creatinine 0.9 Estimated GFR (MDRD) 60 L Glucose 116 H Lactic Acid 0.7 Calcium 8.6 Total Bilirubin 0.4 AST 24 ALT 23 Alkaline Phosphatase 42 Total Protein 6.3 L Albumin 3.4 Globulin 2.9 Albumin/Globulin Ratio 1.2 Lipase 51 PD MEDICAL DECISION MAKING - ED course Complexity details: reviewed old records, reviewed results, considered differential (Patient still feels general malaise today. No noted fever. No other localized symptoms. However she has UTI with early culture showing E. coli and both blood cultures are positive for gram negative rods. I feel she needs hospitalization for aggressive treatment of the bacteremia given immunocomp), d/w patient Departure - Departure Disposition: 66 [facility] DC/Xfer Clinical Impression: Bacteremia due to Gram-negative bacteria UTI (urinary tract infection) Qualifiers: Urinary tract infection type: site unspecified Hematuria presence: without hematuria Qualified Code(s): N39.0 - Urinary tract infection, site not specified Condition: Stable Record reviewed to determine appropriate education?: Yes
[2020-02-17] MEDS ORDERED: GENTAMICIN 280 MG in SODIUM CHLORIDE 0.9% 100ML 100 ML IV STA (10:05)
[2020-02-17 10:18] LABS: BASOPHILS % (AUTO) 0.5 %; HGB - HEMOGLOBIN 10.6 g/dL (12.0-16.0); LYMPHOCYTES % (AUTO) 18.4 %; MEAN CORPUSCULAR HEMOGLOBIN 33.9 pg (27.0-31.0); MEAN CORPUSCULAR HGB CONC 34.3 g/dL (32.0-36.0); MEAN CORPUSCULAR VOLUME 98.7 fL (81.0-99.0); MEAN PLATELET VOLUME 9.7 fL (7.9-10.8); MONOCYTES % (AUTO) 17.5 %; NEUTROPHILS % (AUTO) 62.6 %; PLT - PLATELET COUNT 145 10^3/uL (130-450); RED BLOOD COUNT 3.13 10^6/uL (4.20-5.40); RED CELL DISTRIBUTION WIDTH 14.7 % (12.0-15.0); WHITE BLOOD COUNT 2.1 x10^3/uL (4.8-10.8)
[2020-02-17 10:20] LABS: ABNORMAL LYMPHS % (MANUAL) 0 %
[2020-02-17 10:25] LABS: ALBUMIN 3.4 g/dL (3.2-5.5); ALBUMIN/GLOBULIN RATIO 1.2 (1.0-2.2); BILIRUBIN,TOTAL 0.4 mg/dL (0.2-1.0); CALCIUM 8.6 mg/dL (8.5-10.3); CREATININE 0.9 mg/dL (0.4-1.0); TOTAL PROTEIN 6.3 g/dL (6.7-8.2)
[2020-02-17] MEDS ORDERED: SODIUM CHLORIDE FLUSH 0.9% 10 ML SYRINGE IVP PRN (10:56)
[2020-02-17] MEDS ORDERED: ONDANSETRON 4 MG/2 ML VIAL IVP PRN (10:56)
--- NOTE | 2020-02-17 11:05 | HISTORY & PHYSICAL EXAMINATION ---
Chief Complaint - Chief Complaint Chief Complaint: bacteremia History of Present Illness - Admitted From Admitted From:: ER - History Obtained From Records Reviewed: [employer] History obtained from: Pt - History of Present Illness HPI Comment/Other: This is a 79-year-old woman with history of multiple myeloma on oral chemotherapeutic agent. pt was at ER on yesterday for 4 days of fever, general malaise and lightheaded and Starting Friday with a bit mildly confused. pt was diagnosed with a UTI. she was Given IV Rocephin, blood draw for blood culture and discharged on Cipro for UTI. Blood cultures positive for negative bacilli in both tube of blood culture. pt denies cough, chest pain, shortness of breath, abdominal pain, nausea or vomiting, diarrhea, urinary complaints, runny nose, loss of taste or smell, sore throat, rashes, headache.Patient had temperature 37.9 in ER.Routine laboratory tests show patient WBC 2.1. Patient is admitted fo r bacteremia. 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 Her father at age 87 unknown etiology. She had 3 children. Social History Notes: Patient denies history of cigarette smoking, alcohol or drug issue. 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 She moved to live with her daughter together at [place]. Meds/Allgy - Home Medications Home Medications: Ambulatory Orders Medication Instructions Recorded Confirmed Aspirin [Adult Low Dose Aspirin EC] 81 mg PO DAILY 10/20/17 02/17/20 [place]-3 Fatty Acids/Fish Oil [Fish 1 cap PO DAILY 10/20/17 02/17/20 Oil 1,000 mg Softgel] Acetaminophen [Tylenol] 325 mg PO Q6HR PRN 02/17/20 02/17/20 Ascorbic Acid [Vitamin C] 500 mg PO DAILY 02/17/20 02/17/20 Cholecalciferol (Vitamin D3) 50 mcg PO DAILY 02/17/20 02/17/20 [Vitamin D3] Ibuprofen [Ibu-200] 200 mg PO Q6HR PRN 02/17/20 02/17/20 - Allergies Allergies/Adverse Reactions: Allergies Allergy/AdvReac Type Severity Reaction Status Date / Time No Known Drug Allergies Allergy Verified 02/17/20 09:41 Review of Systems - Constitutional Constitutional: reports: Fever, Malaise. denies: Weakness, Poor appetite, Diaphoresis, Night sweats - Eyes Eyes: denies: Pain, Blurred vision, Spots in vision, Field loss, Vision loss, Dipolpia - Ears, Nose & Throat Ears, Nose & Throat: denies: Ear pain, Tinnitus, Vertigo, Nasal pain, Nosebleeds, Nasal congestion, Sore throat, Mouth lesions, Bleeding gums - Cardiovascular Cariovascular: denies: Irregular heart rate, Palpitations, Chest pain, Edema, Lightheadedness, Syncope, Exertional dyspnea, Decr. exercise tolerance - Respiratory Respiratory: denies: Cough, Sputum production, Wheezing, Snoring, Hemoptysis, Orthopnea, SOB at rest, SOB with exertion - Gastrointestinal Gastrointestinal: denies: Abdominal pain, Constipation, Diarrhea, Rectal bleeding, Black stools, Bloody stools, Nausea, Vomiting, Bile emesis, Coffee grounds emesis - Genitourinary Genitourinary: denies: Dysuria, Frequency, Urgency, Hematuria, Incontinence, Flank pain, Nocturia, Urethral discharge - Musculoskeletal Musculoskeletal: denies: Muscle pain, Back pain, Muscle aches, Stiffness, Li mited range of motion, Muscle weakness, Gout - Integumentary Integumentary: denies: Pruritis, Dryness, Lumps, Pigment changes - Neurological Neurological: denies: General weakness, Focal weakness, Headache, Dizziness, Numbness, Pre-existing deficit, Abnormal gait, Seizures, Incoordination, Slurred speech - Psychiatric Psychiatric: denies: Suicidal, Delusions, Hallucinations, Homicidal - Endocrine Endocrine: denies: Polyuria, Polydypsia, Polyphagia - Hematologic/Lymphatic Hematologic/Lymphatic: denies: Anemia, Petechiae, Lymphadenopathy Exam - Vital Signs Vital Signs: Vital Signs x48h Temp Pulse Resp BP Pulse Ox 02/17/20 09:32 37.9 C H 70 16 150/57 H 97 - Physical Exam General Appearance: positive: No acute distress, Alert. negative: Lethargic Eyes Bilateral: positive: Normal inspection, PERRL, No lid inflammation ENT: positive: ENT inspection nml, No signs of dehydration. negative: Purulent nasal drainage Neck: positive: Nml inspection, Thyroid nml, Trachea midline. negative: Thyromegaly, Stiff neck, Tracheal deviation Respiratory: positive: Chest non-tender, No respiratory distress, Breath sounds nml. negative: Wheezes, Rales, Rhonchi Cardiovascular: positive: Regular rate & rhythm, No murmur. negative: Ta chycardia, Bradycardia, Systolic murmur, Diastolic murmur Peripheral Pulses: positive: 2+ Abdomen: positive: Non-tender, No organomegaly, Nml bowel sounds, No distention. negative: Tenderness, Guarding, Rebound Back: positive: Nml inspection. negative: CVA tenderness (R), CVA tenderness (L) Skin: positive: Color nml, No rash, Warm, Dry. negative: Cyanosis, Diaphoresis, Pallor Extremities: positive: Non-tender, Full ROM, Nml appearance. negative: Calf tenderness, Shruthi's sign/cords Neurologic/Psychiatric: positive: Oriented x3, Motor nml, Sensation nml, Mood/affect nml. negative: Weakness, Sensory loss, Facial droop, Slurred/abnml speech, Depressed mood/affect Conclusion/Plan - Problem List (1) Bacteremia due to Gram-negative bacteria Conclusion/Plan: Patient had 2 tubal blood culture show positive for negative bacilli. Patient had positive for urinary tract infection, it is likely the source for bacteremia. Patient had a fever in the home and malaise. Now patient feel better after he treated in the ER and discharged home, and the patient was called back to hospital because of bacteremia. Sensitivity study is pending, new blood culture was acquired from the ER and pending. ER started with Rocephin, we will continue Rocephin 2 g daily. (2) UTI (urinary tract infection) Conclusion/Plan: Urinalysis showed patient has positive for urinary tract infection. Patient has a history of multiple myeloma, she is on the chemo treatment and her WBC is low at 2.5, patient is high risk for urine tract infection. Because clinically patient is improved significantly from treated on the ER from yesterday. We will hold CAT scan of abdomen to see if patient has pyelonephritis now. Continue Rocephin, urine culture is pending and sensitivity study is pending Qualifiers: Urinary tract infection type: site unspecified Hematuria presence: without hematuria Qualified Code(s): N39.0 - Urinary tract infection, site not specified (3) Hx of multiple myeloma Conclusion/Plan: Patient has a history of for multiple myeloma, on chemotherapy, WBC is low at 2.1, we will closely monitor if pt has fever, have lab monitor as well. 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 - Lab Results Fish Bones: 02/17/20 10:06 02/17/20 10:06 Core Measures - Anticipated LOS I expect patient to be DC'd or transferred within 96 hours.: Yes - DVT/VTE - Prophylaxis VTE/DVT Device ordered at admit?: Yes VTE/DVT Prophylaxis med ordered at admit?: Yes
[2020-02-17 11:29] LABS: BAND NEUTROPHILS % (MANUAL) 2 %; BASOPHILS % (MANUAL) 2 %; LYMPHOCYTES # (MANUAL) 0.5 10^3/uL (1.5-3.5); LYMPHOCYTES % (MANUAL) 23 %; MONOCYTES # (MANUAL) 0.2 10^3/uL (0.0-1.0)
[2020-02-17 11:32] LABS: PLATELET ESTIMATE, MANUAL NORMAL (130-450,000) (NORMAL)
[2020-02-17 11:35] LABS: DIFFERENTIAL COMMENT MANUAL DIFFERENTIAL; PLATELET MORPHOLOGY NORMAL APP (NORMAL)
[2020-02-17] MEDS ORDERED: PROCHLORPERAZINE 10 MG/2 ML VIAL IVP PRN (11:55)
[2020-02-17] MEDS ORDERED: POTASSIUM CHLORIDE 20 MEQ TABLET PO SCH (12:00)
[2020-02-17] MEDS: SODIUM CHLORIDE 0.9% 1,000 ML IV SCH (13:11)
[2020-02-17] MEDS: SODIUM CHLORIDE FLUSH 0.9% 10 ML SYRINGE IVP SCH (13:11)
[2020-02-17] MEDS ORDERED: hydrALAZINE INJ 20 MG/ML VIAL IVP PRN (15:07)
--- NOTE | 2020-02-17 15:43 | PHARMACY PROGRESS NOTE ---
- Best Possible Medication History Admit Date and Time: 02/17/20 1056 Processed by: Pharmacy Medication History completed: Yes Patient Interview: Pt interview ONLY source As the person ultimately responsible for medication therapy, providers are able to order a medication from an existing home medication list in [facility] via the "Reconcile Routine" prior to Confirmation of that medication by phlebotomy support tech. Such practice is discouraged except when the physician, in their clinical judgment, deems that a medical need exists for a medication without regard to previous use.
[2020-02-18] MEDS: SODIUM CHLORIDE FLUSH 0.9% 10 ML SYRINGE IVP SCH ×3 (00:43→17:23)
[2020-02-18] MEDS: SODIUM CHLORIDE 0.9% 1,000 ML IV SCH (01:12)
[2020-02-18 05:29] LABS: BASOPHILS % (AUTO) 0.5 %; HGB - HEMOGLOBIN 9.4 g/dL (12.0-16.0); LYMPHOCYTES % (AUTO) 27.6 %; MEAN CORPUSCULAR HEMOGLOBIN 33.5 pg (27.0-31.0); MEAN CORPUSCULAR HGB CONC 33.1 g/dL (32.0-36.0); MEAN CORPUSCULAR VOLUME 101.1 fL (81.0-99.0); MEAN PLATELET VOLUME 10.1 fL (7.9-10.8); MONOCYTES % (AUTO) 10.6 %; NEUTROPHILS % (AUTO) 60.8 %; PLT - PLATELET COUNT 122 10^3/uL (130-450); RED BLOOD COUNT 2.81 10^6/uL (4.20-5.40); RED CELL DISTRIBUTION WIDTH 14.6 % (12.0-15.0)
[2020-02-18 05:35] LABS: ABNORMAL LYMPHS % (MANUAL) 0 %; BAND NEUTROPHILS % (MANUAL) 0 %
[2020-02-18 05:37] LABS: CALCIUM 8.2 mg/dL (8.5-10.3); CREATININE 0.8 mg/dL (0.4-1.0); MAGNESIUM 1.9 mg/dL (1.7-2.8)
[2020-02-18 05:52] LABS: LYMPHOCYTES # (MANUAL) 0.6 10^3/uL (1.5-3.5); LYMPHOCYTES % (MANUAL) 28 %; MONOCYTES # (MANUAL) 0.2 10^3/uL (0.0-1.0)
[2020-02-18 05:54] LABS: PLATELET ESTIMATE, MANUAL DECREASED (<130,000) (NORMAL); PLATELET MORPHOLOGY NORMAL APPEARANCE (NORMAL)
[2020-02-18] MEDS: PANTOPRAZOLE 40 MG TABLET PO SCH (06:03)
[2020-02-18] MEDS ORDERED: POTASSIUM CHLORIDE 20 MEQ TABLET PO ONE (08:00)
[2020-02-18] MEDS: cefTRIAXone 2 GM in SODIUM CHLORIDE 0.9% MINIBAG 100 ML IV SCH (08:42)
[2020-02-18] MEDS: amLODIPine 5 MG TABLET PO SCH (08:49)
[2020-02-18] MEDS: ASPIRIN CHEW 81 MG TABLET PO SCH (08:49)
[2020-02-18] MEDS: ENOXAPARIN 40 MG/0.4 ML SYRINGE SUBQ SCH (08:50)
[2020-02-18] MEDS ORDERED: cefTRIAXone 2 GM VIAL IVP SCH (09:00)
--- NOTE | 2020-02-18 10:55 | PROVIDER PROGRESS NOTE ---
Assessment/Plan - Problem List (1) Bacteremia due to Gram-negative bacteria Assessment/Plan: 02/17 Patient Has no fever, patient feel better. Blood culture in the day 1 is negative. Continue Rocephin daily Patient had 2 tubal blood culture show positive for negative bacilli. Patient had positive for urinary tract infection, it is likely the source for bacteremia. Patient had a fever in the home and malaise. Now patient feel better after he treated in the ER and discharged home, and the patient was called back to hospital because of bacteremia. Sensitivity study is pending, new blood culture was acquired from the ER and pending. ER started with Rocephin, we will continue Rocephin 2 g daily. (2) UTI (urinary tract infection) Conclusion/Plan: 911,Urine culture show positive with E. coli, sensitivity to all antibiotics. Continue Rocephin Urinalysis showed patient has positive for urinary tract infection. Patient has a history of multiple myeloma, she is on the chemo treatment and her WBC is low at 2.5, patient is high risk for urine tract infection. Because clinically patient is improved significantly from treated on the ER from yesterday. We will hold CAT scan of abdomen to see if patient has pyelonephritis now. Continue Rocephin, urine culture is pending and sensitivity study is pending (3) Hx of multiple myeloma Conclusion/Plan: Patient has a history of for multiple myeloma, on chemotherapy, WBC is low at 2.1, we will closely monitor if pt has fever, have lab monitor as well. 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 (2) UTI (urinary tract infection) Qualifiers: Urinary tract infection type: site unspecified Hematuria presence: without hematuria Qualified Code(s): N39.0 - Urinary tract infection, site not specified - Current Meds Current Meds: Current Medications Generic Name Dose Route Start Last Admin Trade Name Freq PRN Reason Stop Dose Admin Amlodipine Besylate 5 mg 02/18/20 09:00 02/18/20 08:49 Norvasc PO 5 mg DAILY NEO Administration Aspirin 81 mg 02/18/20 09:00 02/18/20 08:49 [facility] Aspirin PO 81 mg DAILY NEO Administration Enoxaparin Sodium 40 mg 02/18/20 09:00 02/18/20 08:50 Lovenox SUBQ 40 mg DAILY NEO Administration Ceftriaxone Sodium 2 gm/ 100 mls @ 200 mls/hr 02/18/20 09:00 02/18/20 09:48 Sodium Chloride IV Infused DAILY NEO Infusion Pantoprazole Sodium 40 mg 02/18/20 07:00 02/18/20 06:03 Protonix PO 40 mg QDAC NEO Administration Sodium Chloride 10 ml 02/17/20 17:00 02/18/20 08:44 Normal Saline Flush 0.9% IVP 10 ml 0100,0900,1700 NEO Administration - Lab Result Fish Bone Diagrams: 02/18/20 05:14 02/18/20 05:14 - Additional Planning My Orders: My Active Orders 02/17/20 10:56 Activity Orders [RC] Q2HR IO [RC] IOSHIFT Initiate Bowel Care Protocol [RC] .protocol Initiate Line Care Protocol [RC] QSHIFT Initiate Personal Care Protoco [RC] .protocol Oxygen Therapy [RC] Routine Telemetry- [RC] Q4HR Vital Signs [RC] 0800,1600,0000 Acetaminophen [Tylenol] 650 mg PO Q4HR PRN Sodium Chloride Flush 0.9% [Normal Saline Flush 0.9%] 10 ml IVP PRN PRN Code Status [OTHERS] Routine Condition of Patient [OTHERS] Routine DVT Prophylaxis [OTHERS] Routine 02/17/20 10:59 SCDs [RC] QSHIFT 02/17/20 Lunch Soft Mechanical Diet [DIET] 02/17/20 11:55 Prochlorperazine Inj [Compazine Inj] 10 mg IVP Q6HR PRN 02/17/20 15:07 hydrALAZINE INJ [Apresoline Inj] 10 mg IVP Q4H PRN 02/17/20 15:13 Code Status [OTHERS] Routine 02/17/20 17:00 Sodium Chloride Flush 0.9% [Normal Saline Flush 0.9%] 10 ml IVP 0100,0900,1700 02/18/20 07:00 Pantoprazole [Protonix] 40 mg PO QDAC 02/18/20 09:00 Aspirin Chewable [[place] Aspirin] 81 mg PO DAILY Enoxaparin [Lovenox] 40 mg SUBQ DAILY amLODIPine [Norvasc] 5 mg PO DAILY cefTRIAXone [Rocephin] 2 gm Sodium Chloride 0.9% Minibag [Normal Saline 0.9% Minibag] 100 ml IV DAILY 02/18/20 17:00 Saccharomyces Boulardii [Florastor] 250 mg PO BIDWM 02/19/20 05:00 BMP - BASIC METABOLIC PANEL [CHEM] DAILYLAB CBC - COMP BLD CT W/AUTO DIFF [HEME] DAILYLAB 02/20/20 05:00 BMP - BASIC METABOLIC PANEL [CHEM] DAILYLAB CBC - COMP BLD CT W/AUTO DIFF [HEME] DAILYLAB 02/21/20 05:00 BMP - BASIC METABOLIC PANEL [CHEM] DAILYLAB CBC - COMP BLD CT W/AUTO DIFF [HEME] DAILYLAB Subjective - Subjective Patient Reports: Feeling Better Objective Vital Signs: Vital Signs - 24 hr 02/17/20 02/17/20 02/17/20 11:40 15:50 20:55 Temperature 36.8 C 37.3 C 36.8 C Heart Rate [ 72 71 63 Brachial] Respiratory 18 16 20 Rate Blood Pressure 167/64 H 156/62 H 133/52 H [Right Brachial artery] O2 Saturation 99 98 96 02/17/20 02/18/20 02/18/20 23:36 05:03 08:00 Temperature 36.7 C 36.6 C 36.7 C Heart Rate [ 71 60 66 Brachial] Respiratory 16 18 16 Rate Blood Pressure 157/67 H 168/63 H 171/66 H [Right Brachial artery] O2 Saturation 96 97 99 02/18/20 09:45 Temperature Heart Rate [ 73 Brachial] Respiratory Rate Blood Pressure 153/67 H [Right Brachial artery] O2 Saturation Oxygen O2 Source Room air I&O (Last 24 Hrs): Intake and Output Totals x24h 02/16/20 02/17/20 02/18/20 23:59 23:59 23:59 Intake Total 1307 1700 Balance 1307 1700 General: Alert, Oriented x3, No acute distress HEENT: Atraumatic Neck: Supple Lymphatic: no adenopathy Neuro: Alert, Non Focal, Oriented Times 3 Cardiovascular: Regular rate, Normal S1, Normal S2 Respiratory: Chest non-tender, No respiratory distress, Breath sounds nml Abdomen: Normal bowel sounds, Soft Extremities: Normal pulses - Results Results: Laboratory Results WBC 2.0 x10^3/uL (4.8-10.8) L* 02/18/20 05:14 RBC 2.81 10^6/uL (4.20-5.40) L 02/18/20 05:14 Hgb 9.4 g/dL (12.0-16.0) L 02/18/20 05:14 Hct 28.4 % (37.0-47.0) L 02/18/20 05:14 MCV 101.1 fL (81.0-99.0) H 02/18/20 05:14 MCH 33.5 pg (27.0-31.0) H 02/18/20 05:14 MCHC 33.1 g/dL (32.0-36.0) 02/18/20 05:14 RDW 14.6 % (12.0-15.0) 02/18/20 05:14 Plt Count 122 10^3/uL (130-450) L 02/18/20 05:14 MPV 10.1 fL (7.9-10.8) 02/18/20 05:14 Neut # (Auto) Not Reportable 02/18/20 05:14 Lymph # (Auto) Not Reportable 02/18/20 05:14 [place] # (Auto) Not Reportable 02/18/20 05:14 Eos # (Auto) Not Reportable 02/18/20 05:14 Baso # (Auto) Not Reportable 02/18/20 05:14 Absolute Nucleated RBC Not Reportable 02/18/20 05:14 Total Counted 100 02/18/20 05:14 Band Neuts % (Manual) 0 % (0-10) 02/18/20 05:14 Reactive Lymphs % (Man) 1 % 02/17/20 10:06 Abnorm Lymph % (Manual) 0 % 02/18/20 05:14 Nucleated RBC % Not Reportable 02/18/20 05:14 Neutrophils # (Manual) 1.3 10^3/uL (1.5-6.6) L 02/18/20 05:14 Lymphocytes # (Manual) 0.6 10^3/uL (1.5-3.5) L 02/18/20 05:14 Monocytes # (Manual) 0.2 10^3/uL (0.0-1.0) 02/18/20 05:14 Eosinophils # (Manual) 0.0 10^3/uL (0-0.7) 02/18/20 05:14 Basophils # (Manual) 0.0 10^3/uL (0-0.1) 02/18/20 05:14 Differential Comment MANUAL DIFFERENTIAL 02/17/20 10:06 Manual Slide Review Indicated 02/17/20 10:06 WBC Morphology NORMAL APPEARANCE (NORMAL) 02/17/20 10:06 Platelet Estimate DECREASED (<130,000) (NORMAL) 02/18/20 05:14 Platelet Morphology NORMAL APPEARANCE (NORMAL) 02/18/20 05:14 RBC Morph Micro Appear 1+ HYPOCHROMASIA (NORMAL) 1+ OVALOCYTES (NORMAL) 02/18/20 05:14 RBC Morph Micro Appear 1+ HYPOCHROMASIA (NORMAL) 1+ OVALOCYTES (NORMAL) 02/18/20 05:14 Sodium 141 mmol/L (135-145) 02/18/20 05:14 Potassium 3.2 mmol/L (3.5-5.0) L 02/18/20 05:14 Chloride 110 mmol/L (101-111) 02/18/20 05:14 Carbon Dioxide 21 mmol/L (21-32) 02/18/20 05:14 Anion Gap 10.0 (6-13) 02/18/20 05:14 BUN 9 mg/dL (6-20) 02/18/20 05:14 Creatinine 0.8 mg/dL (0.4-1.0) 02/18/20 05:14 Estimated GFR (MDRD) 69 (>89) L 02/18/20 05:14 Glucose 108 mg/dL (70-100) H 02/18/20 05:14 Lactic Acid 0.7 mmol/L (0.5-2.2) 02/17/20 10:06 Calcium 8.2 mg/dL (8.5-10.3) L 02/18/20 05:14 Magnesium 1.9 mg/dL (1.7-2.8) 02/18/20 05:14 Total Bilirubin 0.4 mg/dL (0.2-1.0) 02/17/20 10:06 AST 24 IU/L (10-42) 02/17/20 10:06 ALT 23 IU/L (10-60) 02/17/20 10:06 Alkaline Phosphatase 42 IU/L (42-121) 02/17/20 10:06 Total Protein 6.3 g/dL (6.7-8.2) L 02/17/20 10:06 Albumin 3.4 g/dL (3.2-5.5) 02/17/20 10:06 Globulin 2.9 g/dL (2.1-4.2) 02/17/20 10:06 Albumin/Globulin Ratio 1.2 (1.0-2.2) 02/17/20 10:06 Lipase 51 U/L (22-51) 02/17/20 10:06 ABX Reporting Has patient been on IV antibiotics over the past 48 hours?: Yes Current Medications - Current Medications Current Medications: Active Medications Acetaminophen (Tylenol) 650 mg PO Q4HR PRN PRN Reason: Pain 1 to 4 Amlodipine Besylate (Norvasc) 5 mg PO DAILY [facility] Last Admin: 02/18/20 08:49 Dose: 5 mg Documented by: Aspirin ([place] Aspirin) 81 mg PO DAILY [facility] Last Admin: 02/18/20 08:49 Dose: 81 mg Documented by: Enoxaparin Sodium (Lovenox) 40 mg SUBQ DAILY [facility] Last Admin: 02/18/20 08:50 Dose: 40 mg Documented by: Hydralazine HCl (Apresoline Inj) 10 mg IVP Q4H PRN PRN Reason: Hypertensive Emergency Ceftriaxone Sodium 2 gm/ (Sodium Chloride) 100 mls @ 200 mls/hr IV DAILY [facility] Last Infusion: 02/18/20 09:48 Dose: Infused Documented by: Pantoprazole Sodium (Protonix) 40 mg PO QDAC [facility] Last Admin: 02/18/20 06:03 Dose: 40 mg Documented by: Prochlorperazine Edisylate (Compazine Inj) 10 mg IVP Q6HR PRN PRN Reason: Nausea / Vomiting Saccharomyces Boulardii (Florastor) 250 mg PO BIDWM [facility] Sodium Chloride (Normal Saline Flush 0.9%) 10 ml IVP PRN PRN PRN Reason: NEEDED PER PROVIDER ORDERS Sodium Chloride (Normal Saline Flush 0.9%) 10 ml IVP 0100,0900,1700 [facility] Last Admin: 02/18/20 08:44 Dose: 10 ml Documented by: Aspirin [Adult Low Dose Aspirin EC] 81 mg PO DAILY 10/20/17 [place]-3 Fatty Acids/Fish Oil [Fish Oil 1,000 mg Softgel] 1 cap PO DAILY 10/20/17 Acetaminophen [Tylenol] 325 mg PO Q6HR PRN 02/17/20 Ascorbic Acid [Vitamin C] 500 mg PO DAILY 02/17/20 Cholecalciferol (Vitamin D3) [Vitamin D3] 50 mcg PO DAILY 02/17/20 Ibuprofen [Ibu-200] 200 mg PO Q6HR PRN 02/17/20
[2020-02-18] MEDS: SACCHAROMYCES BOULARDII 250 MG CAPSULE PO SCH (17:23)
[2020-02-19] MEDS: ACETAMINOPHEN 325 MG TABLET PO PRN (00:40)
[2020-02-19] MEDS: SODIUM CHLORIDE FLUSH 0.9% 10 ML SYRINGE IVP SCH ×3 (00:41→18:05)
[2020-02-19 05:26] LABS: CALCIUM 8.7 mg/dL (8.5-10.3); CREATININE 0.8 mg/dL (0.4-1.0)
[2020-02-19 05:27] LABS: BASOPHILS % (AUTO) 0.4 %; EOSINOPHILS % (AUTO) 0.4 %; HGB - HEMOGLOBIN 9.9 g/dL (12.0-16.0); MEAN CORPUSCULAR HEMOGLOBIN 33.3 pg (27.0-31.0); MEAN CORPUSCULAR HGB CONC 33.8 g/dL (32.0-36.0); MEAN CORPUSCULAR VOLUME 98.7 fL (81.0-99.0); MEAN PLATELET VOLUME 10.1 fL (7.9-10.8); MONOCYTES % (AUTO) 11.6 %; NEUTROPHILS % (AUTO) 58.2 %; PLT - PLATELET COUNT 148 10^3/uL (130-450); RED BLOOD COUNT 2.97 10^6/uL (4.20-5.40); RED CELL DISTRIBUTION WIDTH 14.4 % (12.0-15.0); WHITE BLOOD COUNT 2.2 x10^3/uL (4.8-10.8)
[2020-02-19 05:35] LABS: ABNORMAL LYMPHS % (MANUAL) 0 %; BAND NEUTROPHILS % (MANUAL) 0 %
[2020-02-19 05:58] LABS: LYMPHOCYTES # (MANUAL) 0.7 10^3/uL (1.5-3.5); LYMPHOCYTES % (MANUAL) 30 %; MONOCYTES # (MANUAL) 0.2 10^3/uL (0.0-1.0); MYELOCYTES % (MANUAL) 1 %
[2020-02-19 05:59] LABS: DIFFERENTIAL COMMENT MANUAL DIFFERENTIAL; PLATELET ESTIMATE, MANUAL NORMAL (130-450,000) (NORMAL); PLATELET MORPHOLOGY NORMAL APPEARANCE (NORMAL); RBC MORPHOLOGY (MULTIPLE) NORMAL APPEARANCE (NORMAL)
[2020-02-19] MEDS: PANTOPRAZOLE 40 MG TABLET PO SCH (06:05)
[2020-02-19] MEDS: SACCHAROMYCES BOULARDII 250 MG CAPSULE PO SCH ×2 (07:55→18:05)
[2020-02-19] MEDS: amLODIPine 5 MG TABLET PO SCH (09:00)
[2020-02-19] MEDS: cefTRIAXone 2 GM in SODIUM CHLORIDE 0.9% MINIBAG 100 ML IV SCH (09:01)
[2020-02-19] MEDS: ASPIRIN CHEW 81 MG TABLET PO SCH (09:01)
[2020-02-19] MEDS: ENOXAPARIN 40 MG/0.4 ML SYRINGE SUBQ SCH (09:01)
[2020-02-19] MEDS ORDERED: ASPIRIN EC 81 MG TABLET PO SCH (10:00)
[2020-02-19] MEDS: CHOLECALCIFEROL 25 MCG TABLET PO SCH (10:23)
[2020-02-19] MEDS: ASCORBIC ACID CHEW 500 MG TABLET PO SCH (10:24)
--- NOTE | 2020-02-19 16:08 | PROVIDER PROGRESS NOTE ---
Assessment/Plan - Problem List (1) Gram-negative bacteremia Assessment/Plan: I spoke to infectious disease at [facility] and discuss duration of treatment in this patient who is immunocompromise. A total 14-day course of treatment was advised, about 2 to 4 days of IV antibiotic (Ceftriaxone) then switch to 10-12 more days of oral Cipro 500 bid. I updated the patient regarding this plan. I will call the daughter regarding this plan, she requested a phone call. (2) E. coli UTI Assessment/Plan: This E. coli is pansensitive. Plan management as above in #1. Per the ID specialist, no need to evaluate for pyelonephritis, which would just be academic he said, since she needs a 14-day total course of treatment anyway. (3) Leukopenia Assessment/Plan: Clear of her chemo suppresses her WBC or if this is chronic from her multiple myeloma. (4) Hx of multiple myeloma Assessment/Plan: She describes having been on some type of chemo which she was told to stop when COVID began, several months ago. She also had to change oncologists and the current oncologist has her on Decadron twice a week. (5) Anemia Assessment/Plan: This is very likely from her multiple myeloma. Follow H/H daily, transfuse if Hgb under 7 or if symptomatic and Hgb under 8. Check B12, folate levels and iron stores and replace if low. (6) Hypokalemia Assessment/Plan: Resolved. - Current Meds Current Meds: Current Medications Generic Name Dose Route Start Last Admin Trade Name Freq PRN Reason Stop Dose Admin Acetaminophen 650 mg 02/17/20 10:56 02/19/20 00:40 Tylenol PO 650 mg Q4HR PRN Administration Pain 1 to 4 Amlodipine Besylate 5 mg 02/18/20 09:00 02/19/20 09:00 Norvasc PO 5 mg DAILY NEO Administration Ascorbic Acid 500 mg 02/19/20 10:00 02/19/20 10:24 Vitamin C PO 500 mg DAILY NEO Administration Aspirin 81 mg 02/18/20 09:00 02/19/20 09:01 [place] Aspirin PO 81 mg DAILY NEO Administration Cholecalciferol 50 mcg 02/19/20 10:00 02/19/20 10:23 Vitamin D3 PO 50 mcg DAILY NEO Administration Enoxaparin Sodium 40 mg 02/18/20 09:00 02/19/20 09:01 Lovenox SUBQ 40 mg DAILY NEO Administration Ceftriaxone Sodium 2 gm/ 100 mls @ 200 mls/hr 02/18/20 09:00 02/19/20 09:31 Sodium Chloride IV Infused DAILY NEO Infusion Pantoprazole Sodium 40 mg 02/18/20 07:00 02/19/20 06:05 Protonix PO 40 mg QDAC NEO Administration Saccharomyces Boulardii 250 mg 02/18/20 17:00 02/19/20 07:55 Florastor PO 250 mg BIDWM NEO Administration Sodium Chloride 10 ml 02/17/20 17:00 02/19/20 09:02 Normal Saline Flush 0.9% IVP 10 ml 0100,0900,1700 NEO Administration - Lab Result Fish Bone Diagrams: 02/19/20 04:50 02/19/20 04:50 - Additional Planning My Orders: My Active Orders 02/19/20 10:00 Ascorbic Acid Chew [Vitamin C] 500 mg PO DAILY Cholecalciferol [Vitamin D3] 50 mcg PO DAILY Subjective - Subjective Patient Reports: Feeling Better, Resting Comfortably Objective Vital Signs: Vital Signs - 24 hr 02/18/20 02/18/20 02/19/20 21:34 23:20 00:53 Temperature 36.5 C 36.6 C Heart Rate [ 60 63 66 Brachial] Respiratory 18 16 Rate Blood Pressure 151/59 H 171/66 H 169/84 H [Right Brachial artery] O2 Saturation 98 98 02/19/20 02/19/20 02/19/20 04:05 05:45 08:25 Temperature 36.5 C 36.4 C L Heart Rate [ 66 61 65 Brachial] Respiratory 16 16 Rate Blood Pressure 170/71 H 168/79 H [Right Brachial artery] O2 Saturation 99 97 02/19/20 02/19/20 02/19/20 09:48 12:15 12:41 Temperature 36.6 C Heart Rate [ 72 68 Brachial] Respiratory 16 Rate Blood Pressure 170/86 H 156/68 H [Right Brachial artery] O2 Saturation 99 02/19/20 15:57 Temperature 36.6 C Heart Rate [ 51 L Brachial] Respiratory 18 Rate Blood Pressure 195/69 H [Right Brachial artery] O2 Saturation 99 Oxygen O2 Source Room air I&O (Last 24 Hrs): Intake and Output Totals x24h 09/03/2802/18/20 02/19/20 23:59 23:59 23:59 Intake Total 1307 3510 1000 Balance 1307 3510 1000 General: Alert, Oriented x3 HEENT: Mucous membr. moist/pink Neck: Supple, No JVD Neuro: Alert, Non Focal Cardiovascular: Regular rate Respiratory: No respiratory distress Abdomen: Soft Extremities: No edema, Other (Several small ecchymoses of the hands, IV site) - Results Results: Laboratory Results WBC 2.2 x10^3/uL (4.8-10.8) L 02/19/20 04:50 RBC 2.97 10^6/uL (4.20-5.40) L 02/19/20 04:50 Hgb 9.9 g/dL (12.0-16.0) L 02/19/20 04:50 Hct 29.3 % (37.0-47.0) L 02/19/20 04:50 MCV 98.7 fL (81.0-99.0) 02/19/20 04:50 MCH 33.3 pg (27.0-31.0) H 02/19/20 04:50 MCHC 33.8 g/dL (32.0-36.0) 02/19/20 04:50 RDW 14.4 % (12.0-15.0) 02/19/20 04:50 Plt Count 148 10^3/uL (130-450) 02/19/20 04:50 MPV 10.1 fL (7.9-10.8) 02/19/20 04:50 Neut # (Auto) Not Reportable 02/19/20 04:50 Lymph # (Auto) Not Reportable 02/19/20 04:50 [place] # (Auto) Not Reportable 02/19/20 04:50 Eos # (Auto) Not Reportable 02/19/20 04:50 Baso # (Auto) Not Reportable 02/19/20 04:50 Absolute Nucleated RBC Not Reportable 02/19/20 04:50 Total Counted 100 02/19/20 04:50 Band Neuts % (Manual) 0 % (0-10) 02/19/20 04:50 Reactive Lymphs % (Man) 1 % 02/17/20 10:06 Abnorm Lymph % (Manual) 0 % 02/19/20 04:50 Myelocytes % 1 % (-0) H 02/19/20 04:50 Nucleated RBC % Not Reportable 02/19/20 04:50 Neutrophils # (Manual) 1.3 10^3/uL (1.5-6.6) L 02/19/20 04:50 Lymphocytes # (Manual) 0.7 10^3/uL (1.5-3.5) L 02/19/20 04:50 Monocytes # (Manual) 0.2 10^3/uL (0.0-1.0) 02/19/20 04:50 Eosinophils # (Manual) 0.0 10^3/uL (0-0.7) 02/19/20 04:50 Basophils # (Manual) 0.0 10^3/uL (0-0.1) 02/19/20 04:50 Differential Comment MANUAL DIFFERENTIAL 02/19/20 04:50 Manual Slide Review Indicated 02/17/20 10:06 WBC Morphology NORMAL APPEARANCE (NORMAL) 02/19/20 04:50 Platelet Estimate NORMAL (130-450,000) (NORMAL) 02/19/20 04:50 Platelet Morphology NORMAL APPEARANCE (NORMAL) 02/19/20 04:50 RBC Morph Micro Appear NORMAL APPEARANCE (NORMAL) 02/19/20 04:50 Sodium 142 mmol/L (135-145) 02/19/20 04:50 Potassium 3.8 mmol/L (3.5-5.0) 02/19/20 04:50 Chloride 111 mmol/L (101-111) 02/19/20 04:50 Carbon Dioxide 25 mmol/L (21-32) 02/19/20 04:50 Anion Gap 6.0 (6-13) 02/19/20 04:50 BUN 7 mg/dL (6-20) 02/19/20 04:50 Creatinine 0.8 mg/dL (0.4-1.0) 02/19/20 04:50 Estimated GFR (MDRD) 69 (>89) L 02/19/20 04:50 Glucose 92 mg/dL (70-100) 02/19/20 04:50 Lactic Acid 0.7 mmol/L (0.5-2.2) 02/17/20 10:06 Calcium 8.7 mg/dL (8.5-10.3) 02/19/20 04:50 Magnesium 1.9 mg/dL (1.7-2.8) 02/18/20 05:14 Total Bilirubin 0.4 mg/dL (0.2-1.0) 02/17/20 10:06 AST 24 IU/L (10-42) 02/17/20 10:06 ALT 23 IU/L (10-60) 02/17/20 10:06 Alkaline Phosphatase 42 IU/L (42-121) 02/17/20 10:06 Total Protein 6.3 g/dL (6.7-8.2) L 02/17/20 10:06 Albumin 3.4 g/dL (3.2-5.5) 02/17/20 10:06 Globulin 2.9 g/dL (2.1-4.2) 02/17/20 10:06 Albumin/Globulin Ratio 1.2 (1.0-2.2) 02/17/20 10:06 Lipase 51 U/L (22-51) 02/17/20 10:06 Stl C. diff Tox B Gene NEGATIVE (NEGATIVE) 02/19/20 03:00
[2020-02-20] MEDS: SODIUM CHLORIDE FLUSH 0.9% 10 ML SYRINGE IVP SCH ×4 (00:33→23:54)
[2020-02-20] MEDS: PANTOPRAZOLE 40 MG TABLET PO SCH (05:10)
[2020-02-20 05:17] LABS: BASOPHILS % (AUTO) 0.4 %; HGB - HEMOGLOBIN 9.9 g/dL (12.0-16.0); LYMPHOCYTES % (AUTO) 23.8 %; MEAN CORPUSCULAR HEMOGLOBIN 33.6 pg (27.0-31.0); MEAN CORPUSCULAR HGB CONC 34.9 g/dL (32.0-36.0); MEAN CORPUSCULAR VOLUME 96.3 fL (81.0-99.0); MEAN PLATELET VOLUME 9.8 fL (7.9-10.8); MONOCYTES % (AUTO) 12.9 %; NEUTROPHILS % (AUTO) 62.1 %; PLT - PLATELET COUNT 160 10^3/uL (130-450); RED BLOOD COUNT 2.95 10^6/uL (4.20-5.40); RED CELL DISTRIBUTION WIDTH 14.1 % (12.0-15.0); WHITE BLOOD COUNT 2.5 x10^3/uL (4.8-10.8)
[2020-02-20 05:20] LABS: ABNORMAL LYMPHS % (MANUAL) 0 %; BAND NEUTROPHILS % (MANUAL) 0 %
[2020-02-20 05:22] LABS: CALCIUM 8.8 mg/dL (8.5-10.3); CREATININE 0.6 mg/dL (0.4-1.0)
[2020-02-20 05:46] LABS: LYMPHOCYTES # (MANUAL) 0.6 10^3/uL (1.5-3.5); LYMPHOCYTES % (MANUAL) 25 %; MONOCYTES # (MANUAL) 0.3 10^3/uL (0.0-1.0)
[2020-02-20 05:47] LABS: DIFFERENTIAL COMMENT MANUAL DIFFERENTIAL; PLATELET ESTIMATE, MANUAL NORMAL (130-450,000) (NORMAL); PLATELET MORPHOLOGY NORMAL APPEARANCE (NORMAL); RBC MORPHOLOGY (MULTIPLE) NORMAL APPEARANCE (NORMAL)
[2020-02-20] MEDS: CHOLECALCIFEROL 25 MCG TABLET PO SCH (08:10)
[2020-02-20] MEDS: SACCHAROMYCES BOULARDII 250 MG CAPSULE PO SCH ×2 (08:10→19:21)
[2020-02-20] MEDS: ASPIRIN CHEW 81 MG TABLET PO SCH (08:10)
[2020-02-20] MEDS: ENOXAPARIN 40 MG/0.4 ML SYRINGE SUBQ SCH (08:11)
[2020-02-20] MEDS: ASCORBIC ACID CHEW 500 MG TABLET PO SCH (08:11)
[2020-02-20] MEDS: amLODIPine 5 MG TABLET PO SCH (08:11)
[2020-02-20] MEDS: cefTRIAXone 2 GM in SODIUM CHLORIDE 0.9% MINIBAG 100 ML IV SCH (08:11)
--- NOTE | 2020-02-20 08:27 | PROVIDER PROGRESS NOTE ---
Assessment/Plan - Problem List (1) Salmonella bacteremia Assessment/Plan: The gram-negative mo has been identified as Salmonella in the blood, not E. coli. The infectious disease doctor underlined the importance of establishing that the bacteremia bacteria is the same as the urine bacteria, which he does not. Will await sensitivities of the Salmonella to adjust medications. She may need a different IV antibiotic started, and used for 2-4 days, if this [place]mon[place] is not sensitive to Ceftriaxone. No discharge home today. (2) E. coli UTI Assessment/Plan: The bacteria is different than her bloodstream infection. Await sensitivities on both to see what antibiotic can be used for treating both E coli and Salmonella. 14-day course planned (3) Metabolic encephalopathy Assessment/Plan: When the patient gave me a complete summary of how she presented over the previous week, she herself noted that she was confused and lightheaded. The daughter reported to me that the patient was still confused yesterday (did not remember if she had received her once daily course of IV antibiotics yesterday). Since the Salmonella bacteremia is different than the E. coli in the UTI, she may yet have not cleared her confusion because of under treatment. Continue with IV fluids plus IV antibiotics. If there is still confusion despite no fever now for 2 days, will do head CT, to evaluate for pathology. (4) Leukopenia Assessment/Plan: Unclear of her chemo suppresses her WBC or if this is chronic from her multiple myeloma. (5) Hx of multiple myeloma Assessment/Plan: She describes having been on some type of chemo which she was told to stop when COVID began, several months ago. She also had to change oncologists and the current oncologist has her on Decadron twice a week. Check an a.m. cortisol level, if this is low, it may explain some of her continued confusion, and would start cortisone replacement back. (6) Anemia Assessment/Plan: This is very likely from her multiple myeloma. Follow H/H daily, transfuse if Hgb under 7 or if symptomatic and Hgb under 8. Check B12, folate levels and iron stores and replace if low. (7) Hypokalemia Assessment/Plan: Resolved with replacement. - Current Meds Current Meds: Current Medications Generic Name Dose Route Start Last Admin Trade Name Freq PRN Reason Stop Dose Admin Acetaminophen 650 mg 02/17/20 10:56 02/19/20 00:40 Tylenol PO 650 mg Q4HR PRN Administration Pain 1 to 4 Amlodipine Besylate 5 mg 02/18/20 09:00 02/20/20 08:11 Norvasc PO 5 mg DAILY NEO Administration Ascorbic Acid 500 mg 02/19/20 10:00 02/20/20 08:11 Vitamin C PO 500 mg DAILY NEO Administration Aspirin 81 mg 02/18/20 09:00 02/20/20 08:10 [place] Aspirin PO 81 mg DAILY NEO Administration Cholecalciferol 50 mcg 02/19/20 10:00 02/20/20 08:10 Vitamin D3 PO 50 mcg DAILY NEO Administration Enoxaparin Sodium 40 mg 02/18/20 09:00 02/20/20 08:11 Lovenox SUBQ 40 mg DAILY NEO Administration Hydralazine HCl 10 mg 02/17/20 15:07 02/19/20 21:20 Apresoline Inj IVP 10 mg Q4H PRN Administration Hypertensive Emergency Ceftriaxone Sodium 2 gm/ 100 mls @ 200 mls/hr 02/18/20 09:00 02/20/20 08:11 Sodium Chloride IV 200 mls/hr DAILY NEO Administration Pantoprazole Sodium 40 mg 02/18/20 07:00 02/20/20 05:10 Protonix PO 40 mg QDAC NEO Administration Saccharomyces Boulardii 250 mg 02/18/20 17:00 02/20/20 08:10 Florastor PO 250 mg BIDWM NEO Administration Sodium Chloride 10 ml 02/17/20 17:00 02/20/20 08:11 Normal Saline Flush 0.9% IVP 10 ml 0100,0900,1700 NEO Administration - Lab Result Fish Bone Diagrams: 02/20/20 05:05 02/20/20 05:05 - Additional Planning My Orders: My Active Orders 02/19/20 10:00 Ascorbic Acid Chew [Vitamin C] 500 mg PO DAILY Cholecalciferol [Vitamin D3] 50 mcg PO DAILY Subjective - Subjective Patient Reports: Feeling Better, Resting Comfortably Objective Vital Signs: Vital Signs - 24 hr 02/19/20 02/19/20 02/19/20 09:48 12:15 12:41 Temperature 36.6 C Heart Rate [ 72 68 Brachial] Respiratory 16 Rate Blood Pressure Blood Pressure [Left Radial artery] Blood Pressure 170/86 H 156/68 H [Right Brachial artery] O2 Saturation 99 02/19/20 02/19/20 02/19/20 15:57 21:00 21:20 Temperature 36.6 C 36.4 C L Heart Rate [ 51 L 70 Brachial] Respiratory 18 19 Rate Blood Pressure 203/63 H Blood Pressure [Left Radial artery] Blood Pressure 195/69 H 203/72 H [Right Brachial artery] O2 Saturation 99 98 02/19/20 02/19/20 02/20/20 21:40 22:07 00:35 Temperature 36.5 C Heart Rate [ 76 Brachial] Respiratory 16 Rate Blood Pressure 163/63 H Blood Pressure [Left Radial artery] Blood Pressure 131/55 H 154/68 H [Right Brachial artery] O2 Saturation 96 02/20/20 02/20/20 05:05 08:09 Temperature 36.6 C 36.8 C Heart Rate [ 73 70 Brachial] Respiratory 16 18 Rate Blood Pressure Blood Pressure 161/74 H [Left Radial artery] Blood Pressure 171/72 H [Right Brachial artery] O2 Saturation 99 99 Oxygen O2 Source Room air I&O (Last 24 Hrs): Intake and Output Totals x24h 02/18/20 02/19/20 02/20/20 23:59 23:59 23:59 Intake Total 3510 1420 Balance 3510 1420 General: Alert, Oriented x3 HEENT: Mucous membr. moist/pink Neck: Supple, No JVD Neuro: Alert, Non Focal Cardiovascular: Regular rate Respiratory: No respiratory distress Abdomen: Soft Extremities: No edema, Other (several small bruises) - Results Results: Laboratory Results WBC 2.5 x10^3/uL (4.8-10.8) L 02/20/20 05:05 RBC 2.95 10^6/uL (4.20-5.40) L 02/20/20 05:05 Hgb 9.9 g/dL (12.0-16.0) L 02/20/20 05:05 Hct 28.4 % (37.0-47.0) L 02/20/20 05:05 MCV 96.3 fL (81.0-99.0) 02/20/20 05:05 MCH 33.6 pg (27.0-31.0) H 02/20/20 05:05 MCHC 34.9 g/dL (32.0-36.0) 02/20/20 05:05 RDW 14.1 % (12.0-15.0) 02/20/20 05:05 Plt Count 160 10^3/uL (130-450) 02/20/20 05:05 MPV 9.8 fL (7.9-10.8) 02/20/20 05:05 Neut # (Auto) Not Reportable 02/20/20 05:05 Lymph # (Auto) Not Reportable 02/20/20 05:05 [place] # (Auto) Not Reportable 02/20/20 05:05 Eos # (Auto) Not Reportable 02/20/20 05:05 Baso # (Auto) Not Reportable 02/20/20 05:05 Absolute Nucleated RBC Not Reportable 02/20/20 05:05 Total Counted 100 02/20/20 05:05 Band Neuts % (Manual) 0 % (0-10) 02/20/20 05:05 Reactive Lymphs % (Man) 1 % 02/17/20 10:06 Abnorm Lymph % (Manual) 0 % 02/20/20 05:05 Myelocytes % 1 % (-0) H 02/19/20 04:50 Nucleated RBC % Not Reportable 02/20/20 05:05 Neutrophils # (Manual) 1.6 10^3/uL (1.5-6.6) 02/20/20 05:05 Lymphocytes # (Manual) 0.6 10^3/uL (1.5-3.5) L 02/20/20 05:05 Monocytes # (Manual) 0.3 10^3/uL (0.0-1.0) 02/20/20 05:05 Eosinophils # (Manual) 0.0 10^3/uL (0-0.7) 02/20/20 05:05 Basophils # (Manual) 0.0 10^3/uL (0-0.1) 02/20/20 05:05 Differential Comment MANUAL DIFFERENTIAL 02/20/20 05:05 Manual Slide Review Indicated 02/17/20 10:06 WBC Morphology NORMAL APPEARANCE (NORMAL) 02/20/20 05:05 Platelet Estimate NORMAL (130-450,000) (NORMAL) 02/20/20 05:05 Platelet Morphology NORMAL APPEARANCE (NORMAL) 02/20/20 05:05 RBC Morph Micro Appear NORMAL APPEARANCE (NORMAL) 02/20/20 05:05 Sodium 140 mmol/L (135-145) 02/20/20 05:05 Potassium 3.5 mmol/L (3.5-5.0) 02/20/20 05:05 Chloride 108 mmol/L (101-111) 02/20/20 05:05 Carbon Dioxide 23 mmol/L (21-32) 02/20/20 05:05 Anion Gap 9.0 (6-13) 02/20/20 05:05 BUN 9 mg/dL (6-20) 02/20/20 05:05 Creatinine 0.6 mg/dL (0.4-1.0) 02/20/20 05:05 Estimated GFR (MDRD) 96 (>89) 02/20/20 05:05 Glucose 97 mg/dL (70-100) 02/20/20 05:05 Lactic Acid 0.7 mmol/L (0.5-2.2) 02/17/20 10:06 Calcium 8.8 mg/dL (8.5-10.3) 02/20/20 05:05 Magnesium 1.9 mg/dL (1.7-2.8) 02/18/20 05:14 Total Bilirubin 0.4 mg/dL (0.2-1.0) 02/17/20 10:06 AST 24 IU/L (10-42) 02/17/20 10:06 ALT 23 IU/L (10-60) 02/17/20 10:06 Alkaline Phosphatase 42 IU/L (42-121) 02/17/20 10:06 Total Protein 6.3 g/dL (6.7-8.2) L 02/17/20 10:06 Albumin 3.4 g/dL (3.2-5.5) 02/17/20 10:06 Globulin 2.9 g/dL (2.1-4.2) 02/17/20 10:06 Albumin/Globulin Ratio 1.2 (1.0-2.2) 02/17/20 10:06 Lipase 51 U/L (22-51) 02/17/20 10:06 Stl C. diff Tox B Gene NEGATIVE (NEGATIVE) 02/19/20 03:00
[2020-02-20] MEDS: ACETAMINOPHEN 325 MG TABLET PO PRN (19:21)
[2020-02-21 05:33] LABS: BASOPHILS % (AUTO) 0.4 %; HGB - HEMOGLOBIN 10.2 g/dL (12.0-16.0); LYMPHOCYTES # (AUTO) 0.5 10^3/uL (1.5-3.5); LYMPHOCYTES % (AUTO) 19.8 %; MEAN CORPUSCULAR HEMOGLOBIN 33.6 pg (27.0-31.0); MEAN CORPUSCULAR HGB CONC 34.5 g/dL (32.0-36.0); MEAN CORPUSCULAR VOLUME 97.4 fL (81.0-99.0); MEAN PLATELET VOLUME 9.6 fL (7.9-10.8); MONOCYTES # (AUTO) 0.4 10^3/uL (0.0-1.0); MONOCYTES % (AUTO) 17.5 %; NEUTROPHILS # (AUTO) 1.6 10^3/uL (1.5-6.6); NEUTROPHILS % (AUTO) 61.5 %; PLT - PLATELET COUNT 174 10^3/uL (130-450); RED BLOOD COUNT 3.04 10^6/uL (4.20-5.40); RED CELL DISTRIBUTION WIDTH 14.1 % (12.0-15.0); WHITE BLOOD COUNT 2.5 x10^3/uL (4.8-10.8)
[2020-02-21 05:55] LABS: CALCIUM 8.6 mg/dL (8.5-10.3); CREATININE 0.7 mg/dL (0.4-1.0)
[2020-02-21] MEDS: PANTOPRAZOLE 40 MG TABLET PO SCH (06:14)
[2020-02-21 06:18] LABS: FOLATE 18.66 ng/mL (5.90 - >24.8)
[2020-02-21] MEDS ORDERED: POTASSIUM CHLORIDE 20 MEQ TABLET PO SCH (07:09)
[2020-02-21] MEDS: CHOLECALCIFEROL 25 MCG TABLET PO SCH (08:06)
[2020-02-21] MEDS: amLODIPine 5 MG TABLET PO SCH (08:07)
[2020-02-21] MEDS: ASPIRIN CHEW 81 MG TABLET PO SCH (08:07)
[2020-02-21] MEDS: ASCORBIC ACID CHEW 500 MG TABLET PO SCH (08:07)
[2020-02-21] MEDS: SACCHAROMYCES BOULARDII 250 MG CAPSULE PO SCH ×2 (08:07→16:44)
[2020-02-21] MEDS: ENOXAPARIN 40 MG/0.4 ML SYRINGE SUBQ SCH (08:08)
[2020-02-21] MEDS: cefTRIAXone 2 GM in SODIUM CHLORIDE 0.9% MINIBAG 100 ML IV SCH (08:08)
[2020-02-21] MEDS: SODIUM CHLORIDE FLUSH 0.9% 10 ML SYRINGE IVP SCH ×3 (08:14→23:49)
[2020-02-21] MEDS ORDERED: IOVERSOL 320 50 ML VIAL ONE (10:57)
[2020-02-21] MEDS ORDERED: IOVERSOL 320 100 ML VIAL IVP ONE ×2 (10:58→16:59)
--- NOTE | 2020-02-21 12:31 | PROVIDER PROGRESS NOTE ---
Assessment/Plan - Problem List (1) Salmonella bacteremia Assessment/Plan: Yesterday, the identifcation of the GNR in the blood was made: Salmonella. The source of having bacteremia with Salmonella is unclear. I had spoken to ID at [facility] 2 days ago and the Infectious Disease doctor underlined the importance of establishing what both bacteria are and that if the bacteremia pathogen is the same as the urine pathogen, that she can be discharged when she defervesces, and a 14 day course would be planned. This morning the patient mentioned that she "has no appetite for a soft diet and wants a regular diet". When asked how long she has had "no appetite" she states this has been for weeks. I then questioned her regarding any change in bowel movements and she says "I have diarrhea all the time". The admission H&P stated there has been no diarrhea. The patient then said she "is used to having diarrhea and no appetite". Plan imaging with contrast and oral contrast of the abdomen pelvis to evaluate for GI pathology as the source of the Salmonella. I called our microbiology lab, regarding this blood culture and was told it is being sent out today to get sensitivities. The earliest results may be back is tomorrow possibly. No discharge planned today. 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 Will order C diff and stool cultures. Perhaps this is the source of the Salmonella bacteremia. Will obtain abd/pelvic imaging. She is not ready for [facility] today. (3) E. coli UTI Assessment/Plan: She is on appropriate iv antibiotics that her E coli is sens to. (4) Metabolic encephalopathy Assessment/Plan: She was obtunded and admittedly confused at admission. The daughter told me 2 days ago, that the pt is still more forgetful than normal. She is clinically dehydrated, c/o dry mouth today, and has no appetite to take in her tray. Her neuro exam is non-focal. Will order iv hydration. Will consider CT head imaging, if the hydration does not improve her encephalopathy (memory). (5) Leukopenia Assessment/Plan: Chronic and presumed to be from her malignanacy and prior chemo. Follow CBC daily. (6) Hx of multiple myeloma Assessment/Plan: The patient today remembered the name of her new, current oncologist: Dr. Negin Palomino. She stated that this doctor has her on Decadron. I asked the pharmacist to determine what the previous chemotherapy was and what the current dose of Decadron is. CONRADO from our pharmacy determined that the patient is currently not on either the dexamethasone or the previous cyclophosphamide. (7) Anemia Assessment/Plan: As above in #5. Transfuse if Hgb <7. (8) Hypokalemia Assessment/Plan: She is again hypokalemic and will need replacement. Suspect this is from decreased po intake, as she reports to interest in food or liquids. Follow BMP daily. - Current Meds Current Meds: Current Medications Generic Name Dose Route Start Last Admin Trade Name Freq PRN Reason Stop Dose Admin Acetaminophen 650 mg 02/17/20 10:56 02/20/20 19:21 Tylenol PO 650 mg Q4HR PRN Administration Pain 1 to 4 Amlodipine Besylate 5 mg 02/18/20 09:00 02/21/20 08:07 Norvasc PO 5 mg DAILY NEO Administration Ascorbic Acid 500 mg 02/19/20 10:00 02/21/20 08:07 Vitamin C PO 500 mg DAILY NEO Administration Aspirin 81 mg 02/18/20 09:00 02/21/20 08:07 [place] Aspirin PO 81 mg DAILY NEO Administration Cholecalciferol 50 mcg 02/19/20 10:00 02/21/20 08:06 Vitamin D3 PO 50 mcg DAILY NEO Administration Enoxaparin Sodium 40 mg 02/18/20 09:00 02/21/20 08:08 Lovenox SUBQ 40 mg DAILY NEO Administration Hydralazine HCl 10 mg 02/17/20 15:07 02/19/20 21:20 Apresoline Inj IVP 10 mg Q4H PRN Administration Hypertensive Emergency Ceftriaxone Sodium 2 gm/ 100 mls @ 200 mls/hr 02/18/20 09:00 02/21/20 08:38 Sodium Chloride IV Infused DAILY NEO Infusion Pantoprazole Sodium 40 mg 02/18/20 07:00 02/21/20 06:14 Protonix PO 40 mg QDAC NEO Administration Saccharomyces Boulardii 250 mg 02/18/20 17:00 02/21/20 08:07 Florastor PO 250 mg BIDWM NEO Administration Sodium Chloride 10 ml 02/17/20 17:00 02/21/20 08:14 Normal Saline Flush 0.9% IVP 10 ml 0100,0900,1700 [facility] Administration - Lab Result Fish Bone Diagrams: 02/22/20 07:35 02/22/20 07:35 - Additional Planning My Orders: My Active Orders 02/21/20 11:59 CULTURE, STOOL [RM] Stat Subjective - Subjective Patient Reports: Other (She describes having no appetite, that is why she "wanted her soft diet changed to a regular diet".) Objective Vital Signs: Vital Signs - 24 hr 02/20/20 02/20/20 02/20/20 18:00 21:38 23:40 Temperature 36.7 C 36.5 C 36.6 C Heart Rate [ 76 67 68 Brachial] Respiratory 18 19 16 Rate Blood Pressure 168/62 H 170/65 H 156/45 H [Left Brachial artery] O2 Saturation 97 98 97 02/21/20 02/21/20 02/21/20 05:29 07:40 08:05 Temperature 36.3 C L 36.9 C Heart Rate [ 69 78 Brachial] Respiratory 16 18 Rate Blood Pressure 167/77 H 180/75 H 151/79 H [Left Brachial artery] O2 Saturation 96 97 Oxygen O2 Source Room air I&O (Last 24 Hrs): Intake and Output Totals x24h 02/19/20 02/20/20 02/21/20 23:59 23:59 23:59 Intake Total 1420 1430 820 Balance 1420 1430 820 General: Alert, Oriented x3 (But seems very forgetful: she asked to have the plan explained to her later in the day again by Provider.) HEENT: Other (mucosa dry) Neck: Supple, No JVD Neuro: Alert, Non Focal Cardiovascular: Regular rate, No murmurs Respiratory: No respiratory distress Abdomen: Normal bowel sounds, Soft, No tenderness Extremities: No edema - Results Results: Laboratory Results WBC 2.5 x10^3/uL (4.8-10.8) L 02/21/20 05:18 RBC 3.04 10^6/uL (4.20-5.40) L 02/21/20 05:18 Hgb 10.2 g/dL (12.0-16.0) L 02/21/20 05:18 Hct 29.6 % (37.0-47.0) L 02/21/20 05:18 MCV 97.4 fL (81.0-99.0) 02/21/20 05:18 MCH 33.6 pg (27.0-31.0) H 02/21/20 05:18 MCHC 34.5 g/dL (32.0-36.0) 02/21/20 05:18 RDW 14.1 % (12.0-15.0) 02/21/20 05:18 Plt Count 174 10^3/uL (130-450) 02/21/20 05:18 MPV 9.6 fL (7.9-10.8) 02/21/20 05:18 Neut # (Auto) 1.6 10^3/uL (1.5-6.6) 02/21/20 05:18 Lymph # (Auto) 0.5 10^3/uL (1.5-3.5) L 02/21/20 05:18 [place] # (Auto) 0.4 10^3/uL (0.0-1.0) 02/21/20 05:18 Eos # (Auto) 0.0 10^3/uL (0.0-0.7) 02/21/20 05:18 Baso # (Auto) 0.0 10^3/uL (0.0-0.1) 02/21/20 05:18 Absolute Nucleated RBC 0.00 x10^3/uL 02/21/20 05:18 Total Counted 100 02/20/20 05:05 Band Neuts % (Manual) 0 % (0-10) 02/20/20 05:05 Reactive Lymphs % (Man) 1 % 02/17/20 10:06 Abnorm Lymph % (Manual) 0 % 02/20/20 05:05 Myelocytes % 1 % (-0) H 02/19/20 04:50 Nucleated RBC % 0.0 /100WBC 02/21/20 05:18 Neutrophils # (Manual) 1.6 10^3/uL (1.5-6.6) 02/20/20 05:05 Lymphocytes # (Manual) 0.6 10^3/uL (1.5-3.5) L 02/20/20 05:05 Monocytes # (Manual) 0.3 10^3/uL (0.0-1.0) 02/20/20 05:05 Eosinophils # (Manual) 0.0 10^3/uL (0-0.7) 02/20/20 05:05 Basophils # (Manual) 0.0 10^3/uL (0-0.1) 02/20/20 05:05 Differential Comment MANUAL DIFFERENTIAL 02/20/20 05:05 Manual Slide Review Indicated 02/17/20 10:06 WBC Morphology NORMAL APPEARANCE (NORMAL) 02/20/20 05:05 Platelet Estimate NORMAL (130-450,000) (NORMAL) 02/20/20 05:05 Platelet Morphology NORMAL APPEARANCE (NORMAL) 02/20/20 05:05 RBC Morph Micro Appear NORMAL APPEARANCE (NORMAL) 02/20/20 05:05 Sodium 141 mmol/L (135-145) 02/21/20 05:18 Potassium 3.2 mmol/L (3.5-5.0) L 02/21/20 05:18 Chloride 106 mmol/L (101-111) 02/21/20 05:18 Carbon Dioxide 25 mmol/L (21-32) 02/21/20 05:18 Anion Gap 10.0 (6-13) 02/21/20 05:18 BUN 9 mg/dL (6-20) 02/21/20 05:18 Creatinine 0.7 mg/dL (0.4-1.0) 02/21/20 05:18 Estimated GFR (MDRD) 81 (>89) L 02/21/20 05:18 Glucose 97 mg/dL (70-100) 02/21/20 05:18 Lactic Acid 0.7 mmol/L (0.5-2.2) 02/17/20 10:06 Calcium 8.6 mg/dL (8.5-10.3) 02/21/20 05:18 Magnesium 1.9 mg/dL (1.7-2.8) 02/18/20 05:14 Iron 65 ug/dL (28-170) 02/21/20 05:18 TIBC 230 ug/dL (250-450) L 02/21/20 05:18 % Saturation 28 % (20-50) 02/21/20 05:18 Transferrin 164 mg/dL (192-382) L 02/21/20 05:18 Total Bilirubin 0.4 mg/dL (0.2-1.0) 02/17/20 10:06 AST 24 IU/L (10-42) 02/17/20 10:06 ALT 23 IU/L (10-60) 02/17/20 10:06 Alkaline Phosphatase 42 IU/L (42-121) 02/17/20 10:06 Total Protein 6.3 g/dL (6.7-8.2) L 02/17/20 10:06 Albumin 3.4 g/dL (3.2-5.5) 02/17/20 10:06 Globulin 2.9 g/dL (2.1-4.2) 02/17/20 10:06 Albumin/Globulin Ratio 1.2 (1.0-2.2) 02/17/20 10:06 Lipase 51 U/L (22-51) 02/17/20 10:06 Vitamin B12 528 pg/mL (180-914) 02/21/20 05:18 Folate 18.66 ng/mL (5.90 - >24.8) 02/21/20 05:18 Cortisol AM Sample 13.6 ug/dL 02/20/20 05:05 Stl C. diff Tox B Gene NEGATIVE (NEGATIVE) 02/19/20 03:00
--- NOTE | 2020-02-21 14:30 | CT Report ---
PROCEDURE: Abdomen/Pelvis W INDICATIONS: ANOREXIA, SAMONELLA BACTEREMIA CONTRAST: IV CONTRAST: Optiray 320 ml: 100 PO CONTRAST: Optiray 320 ml50 TECHNIQUE: After the administration of intravenous and oral contrast, 5 mm thick sections acquired from the diap hragms to the symphysis. 5 mm thick coronal and sagittal reformats were acquired. For radiation dos e reduction, the following was used: automated exposure control, adjustment of mA and/or kV accordin g to patient size. COMPARISON: None. FINDINGS: Image quality: Excellent. ABDOMEN: Lung bases: There is mild dependent atelectasis bilaterally. Heart size is normal. There is trace per icardial fluid inferiorly. Solid organs: There is hypoattenuation of the liver consistent with fatty infiltration. The gallblad leah is partially distended with associated slight wall thickening likely due to incomplete distention . A dependent calcified gallstone is demonstrated within the fundus of the gallbladder. No pericholec ystic fluid or fat stranding. Biliary system is non dilated. Pancreas enhances normally without lani pancreatic fat stranding or fluid collections. No pancreatic duct dilatation. No adrenal nodules. S pleen is normal in size. There is a lobulated nonspecific cystic lesion within the spleen measuring u p to 4.3 cm. Peritoneum and bowel: Bowel loops demonstrate normal wall thickness and caliber. No evidence of appe ndicitis. There is colonic diverticulosis without acute diverticulitis. No free fluid or air. Nodes and vessels: No retroperitoneal or mesenteric adenopathy by size criteria. Aorta and inferior vena cava are normal in size. Miscellaneous: No ventral hernias. PELVIS: Genitourinary: Bladder wall thickness is normal. Miscellaneous: No inguinal hernias or adenopathy. Bones: No suspicious bony lesions. No vertebral body compression fractures. Moderate to severe dege nerative disc disease is demonstrated at L5-S1. IMPRESSION: 1. No definite acute intra-abdominal abnormality. 2. Cholelithiasis without definite CT evidence of acute cholecystitis. Mild gallbladder wall thickeni ng is likely due to incomplete distention. If there is clinical suspicion for cholecystitis, further evaluation may be obtained with ultrasound. 3. Colonic diverticulosis without acute diverticulitis. 4. Nonspecific cystic lesion within the spleen statistically likely represents a benign process. Reviewed by: Arvind Juarez MD on 02/21/2020 2:29 PM PDT Approved by: Arvind Juarez MD on 02/21/2020 2:29 PM PDT Station ID: [id number]
[2020-02-21] MEDS: ACETAMINOPHEN 325 MG TABLET PO PRN (16:44)
[2020-02-21] MEDS ORDERED: IOVERSOL 320 50 ML VIAL PO ONE (17:00)
[2020-02-22] MEDS: PANTOPRAZOLE 40 MG TABLET PO SCH (06:13)
[2020-02-22] MEDS: amLODIPine 5 MG TABLET PO SCH (06:22)
[2020-02-22 07:40] LABS: BASOPHILS % (AUTO) 0.3 %; HGB - HEMOGLOBIN 10.2 g/dL (12.0-16.0); LYMPHOCYTES # (AUTO) 0.6 10^3/uL (1.5-3.5); LYMPHOCYTES % (AUTO) 18.1 %; MEAN CORPUSCULAR HGB CONC 34.2 g/dL (32.0-36.0); MEAN CORPUSCULAR VOLUME 99.3 fL (81.0-99.0); MEAN PLATELET VOLUME 9.5 fL (7.9-10.8); MONOCYTES # (AUTO) 0.5 10^3/uL (0.0-1.0); MONOCYTES % (AUTO) 15.2 %; NEUTROPHILS % (AUTO) 66.1 %; PLT - PLATELET COUNT 190 10^3/uL (130-450); RED CELL DISTRIBUTION WIDTH 14.3 % (12.0-15.0); WHITE BLOOD COUNT 3.1 x10^3/uL (4.8-10.8)
[2020-02-22 07:48] LABS: CALCIUM 8.3 mg/dL (8.5-10.3); CREATININE 0.7 mg/dL (0.4-1.0)
[2020-02-22] MEDS ORDERED: POTASSIUM CHLORIDE 20 MEQ TABLET PO ONE (07:58)
[2020-02-22] MEDS ORDERED: amLODIPine 5 MG TABLET PO SCH (08:00)
[2020-02-22] MEDS ORDERED: CIPROFLOXACIN 400 MG/200 ML 400 MG/200 ML BAG IV SCH (08:00)
[2020-02-22] MEDS: ASCORBIC ACID CHEW 500 MG TABLET PO SCH (08:36)
[2020-02-22] MEDS: SACCHAROMYCES BOULARDII 250 MG CAPSULE PO SCH (08:36)
[2020-02-22] MEDS: ASPIRIN CHEW 81 MG TABLET PO SCH (08:36)
[2020-02-22] MEDS: CHOLECALCIFEROL 25 MCG TABLET PO SCH (08:37)
[2020-02-22] MEDS: ENOXAPARIN 40 MG/0.4 ML SYRINGE SUBQ SCH (08:38)
[2020-02-22 11:44] VITALS: BP 163/68
[2020-02-22] MEDS: SODIUM CHLORIDE FLUSH 0.9% 10 ML SYRINGE IVP SCH (11:58)
--- NOTE | 2020-02-22 12:25 | Discharge Plan ---
Discharge Plan Problem Reviewed?: Yes Disposition: Home, Self Care Condition: Stable Prescriptions: Ciprofloxacin [Cipro] 500 mg PO BID #20 ml Saccharomyces Boulardii [Florastor] 250 mg PO DAILY #10 capsule amLODIPine [Norvasc] 10 mg PO DAILY #30 tablet Diet: Soft Activity Restrictions: Activity as Tolerated Shower Restrictions: No (fall precaution) Instruction Topics: Salmonellosis, E Coli Infec, Hypertension Control, Antibiotics, Ciprofloxacin tablets, Amlodipine tablets Health Concerns: UTI and bacteremia, HTN Plan of Treatment: you were found to have UTI infection and blood stream infection. your repeated blood culture show negative bacteremia now. you have no fever or chill. you are prescribed antibiotics Cipro for that. you also show HTN, you are prescribed blood pressure medication Amlodipine. Care Goals: stabilization and improvement of your medical conditions Assessment: discussed the care plan with you, you understood and agreed. Additional Instructions or Follow Up instructions: You may followup with your PCP in one week, followup with your oncologist as out-pt. Should your symptoms return or worsen, you may present ER or call 911 for help. No Smoking: If you smoke, Please STOP! Call for help. Follow-up with: Moody Carmona MD [Primary Care Provider] -
--- NOTE | 2020-02-22 12:58 | DISCHARGE SUMMARY ---
Discharge Summary Admit Date: 02/17/20 Discharge Date: 02/22/20 Discharging Provider: Grady Stoll Primary Care Provider: Dr. Moody Carmona Condition at Discharge: Stable Discharge Disposition: 01 Home, Self Care Discharge Facility Name: home - DIAGNOSES Discharge Diagnoses with Status of Each Condition: (1) Salmonella bacteremia Patient had repeat blood culture, both tube were negative for bacteremia. Initially blood culture show 1 tubal still was gram-negative bacilli, another tube show Salmonella, but Urine culture show gram-negative E. coli. I suspect 1 tubal culture show Salmonella which was contaminated. Stool sample was sent for culture. I called laboratory, this culture will take a few days come back the result, CAT scan of the abdomen show unremarkable. patient really want to be discharged today. Patient has no fever all the time in the hospital. Patient is hemodynamic stable, she denies any pain, chill, fever. In either case, Cipro is antibiotics choice for patient. Patient is immunocompromise status, because of her multiple myeloma, lower WBC. Patient is prescribed 10 days Cipro. Advised patient follow-up with PCP in 1 week, follow-up her oncologist as soon as possible. (2) E. coli UTI Urine culture show E. coli, patient is prescribed Cipro for continue the treatment course (3) Leukopenia It is Unclear of her chemo suppresses or from multiple myeloma. Patient is prescribed antibiotics for discharge to home, advised patient continue follow-up with her oncologist as soon as possible (4) Hx of multiple myeloma chronic, advised patient continue follow-up with her oncologist as soon as possible (5) Anemia stable (6) Hypokalemia k is 3.3, replaced (7) HTN Patient is prescribed amlodipine for blood pressure control - HPI History of Present Illness: This is a 79-year-old woman with history of multiple myeloma on oral chemotherapeutic agent. pt was at ER on yesterday for 4 days of fever, general malaise and lightheaded and Starting Friday with a bit mildly confused. pt was diagnosed with a UTI. she was Given IV Rocephin, blood draw for blood culture and discharged on Cipro for UTI. Blood cultures positive for negative bacilli in both tube of blood culture. pt denies cough, chest pain, shortness of breath, abdominal pain, nausea or vomiting, diarrhea, urinary complaints, runny nose, loss of taste or smell, sore throat, rashes, headache.Patient had temperature 37.9 in ER.Routine laboratory tests show patient WBC 2.1. Patient is admitted for bacteremia. Discussed the care goal with the patient, patient request DNR - HOSPITAL COURSE Hospital Course: Patient was admitted for bacteremia. Patient was admitted to the ER before and with blood culture, patient was called back to the hospital because of positive blood culture in 2 tube. Blood culture in two tubes show gram-negative bacilli. 1 tub culture show Salmonella but another tube still was still gram negative bacilli. Urine culture show E. coli. Repeated culture in two tube showed negative for bacteremai. in hospital, she has no complaint, she has no fever or chilly, Patient has been hemodynamic stable. Patient is alert and orientated +3. Patient hope to be discharged. Patient is prescribed cipro to continue the treatment course. - ALLERGIES Allergies/Adverse Reactions: Allergies Allergy/AdvReac Type Severity Reaction Status Date / Time No Known Drug Allergies Allergy Verified 02/17/20 09:41 - MEDICATIONS Home Medications: Ambulatory Orders Medication Instructions Recorded Confirmed Aspirin [Adult Low Dose Aspirin EC] 81 mg PO DAILY 10/20/17 02/17/20 [place]-3 Fatty Acids/Fish Oil [Fish 1 cap PO DAILY 10/20/17 02/17/20 Oil 1,000 mg Softgel] Acetaminophen [Tylenol] 325 mg PO Q6HR PRN 02/17/20 02/17/20 Ascorbic Acid [Vitamin C] 500 mg PO DAILY 02/17/20 02/17/20 Cholecalciferol (Vitamin D3) 50 mcg PO DAILY 02/17/20 02/17/20 [Vitamin D3] Ibuprofen [Ibu-200] 200 mg PO Q6HR PRN 02/17/20 02/17/20 Ciprofloxacin [Cipro] 500 mg PO BID #20 ml 02/22/20 Saccharomyces Boulardii [Florastor] 250 mg PO DAILY #10 capsule 02/22/20 amLODIPine [Norvasc] 10 mg PO DAILY #30 tablet 02/22/20 - PHYSICAL EXAM AT DISCHARGE General Appearance: positive: No acute distress, Alert. negative: Lethargic Eyes Bilateral: positive: Normal inspection, PERRL, No lid inflammation ENT: positive: ENT inspection nml, Pharynx nml, No signs of dehydration. negative: Purulent nasal drainage Neck: positive: Nml inspection, Thyroid nml, Trachea midline. negative: Thyrom egaly, Stiff neck, Tracheal deviation Respiratory: positive: Chest non-tender, No respiratory distress, Breath sounds nml. negative: Wheezes, Rales, Rhonchi Cardiovascular: positive: Regular rate & rhythm, No murmur. negative: Irregularly irregular, Tachycardia, Bradycardia, Systolic murmur, Diastolic murmur Peripheral Pulses: positive: 2+ Abdomen: positive: Non-tender, Nml bowel sounds, No distention. negative: Tenderness, Guarding, Rebound Back: positive: Nml inspection Skin: positive: Color nml, No rash, Warm, Dry. negative: Cyanosis, Diaphoresis, Pallor Extremities: positive: Non-tender, Full ROM, Nml appearance. negative: Calf tenderness, Shruthi's sign/cords Neurologic/Psychiatric: positive: Oriented x3, Motor nml, Sensation nml, Mood/affect nml. negative: Weakness, Sensory loss, Facial droop, Slurred/abnml speech, Depressed mood/affect - LABS Result Diagrams: 02/22/20 07:35 02/22/20 07:35 - FOLLOW UP Follow Up: you were found to have UTI infection and blood stream infection. your repeated b lood culture show negative bacteremia now. you have no fever or chill. you are prescribed antibiotics Cipro for that. you also show HTN, you are prescribed blood pressure medication Amlodipine. You may followup with your PCP in one week, followup with your oncologist as out-pt. Should your symptoms return or worsen, you may present ER or call 911 for help. - TIME SPENT Time Spent in Discharge (Minutes): 30
[2020-02-23] MEDS ORDERED: amLODIPine 5 MG TABLET PO SCH (09:00)
== END 2020-02-22 13:45 | disposition home or self-care (01) | DRG 867 ==
LOC: ED 09:29 → MS2 10:56
PROVIDERS: ADMIT Nurse Practitioner Gerontology; ATTEND Nurse Practitioner Gerontology
DX: A02.9 Salmonella infection, unspecified (principal); R78.81 Bacteremia; G93.41 Metabolic encephalopathy; N39.0 Urinary tract infection, site not specified; C90.00 Multiple myeloma not having achieved remission; B96.20 Unspecified Escherichia coli [E. coli] as the cause of diseases classified elsewhere; D72.819 Decreased white blood cell count, unspecified; D64.9 Anemia, unspecified; E87.6 Hypokalemia; I10 Essential (primary) hypertension; E86.0 Dehydration; Z66 Do not resuscitate
CPT/HCPCS: 36415; 74177; 80048; 80053; 81599; 82533; 82607; 82746; 83540; 83605; 83690; 83735; 84466; 85025; 87040; 87493; 96365; 96375; 99284; 99285; A9270; J1650; Q9967; 87045; 87046

== ENCOUNTER 2021-01-12 08:09 | Outpatient (CLI) | payer MEDICARE ==
[2021-01-12 08:35] LABS: CALCIUM 9.8 mg/dL (8.5-10.3); POTASSIUM 3.4 mmol/L (3.5-5.0)
== END 2021-01-12 08:10 | disposition home or self-care (01) ==
LOC: LAB 08:09
PROVIDERS: ATTEND Internal Medicine Medical Oncology
DX: C90.00 Multiple myeloma not having achieved remission (principal); I10 Essential (primary) hypertension
CPT/HCPCS: 36415; 80048

== ENCOUNTER 2022-08-13 08:00 | Outpatient (CLI) | payer MEDICARE | END 2022-08-13 23:59 | disposition home or self-care (01) | LOC: LAB.S 08:00 | PROVIDERS: ATTEND Physician Assistant Medical | DX: N39.0 Urinary tract infection, site not specified (principal) | CPT/HCPCS: 87086; 87181 ==

== ENCOUNTER 2022-09-18 13:53 | Outpatient (CLI) | payer MEDICARE ==
--- NOTE | 2022-09-18 17:35 | DEXA Report ---
PROCEDURE: Dexa Spine and/or Hip INDICATIONS: POST MENOPAUSAL TECHNIQUE: Dual energy x-ray absorptiometry (DXA) was performed on a [employer] System. Regions measur ed are the AP Spine, femoral neck, and if needed forearm. COMPARISON: None. FINDINGS: Lumbar Spine: Bone Mineral Density 1.109 g/cm/cm,T score -0.8, Left Femoral Neck: Bone Mineral Density 0.630 g/cm/cm, T score -2.9, Left Hip: Bone Mineral Density 0.726 g/cm/cm,T score -2.2, (T score greater or equal to -1.0: NORMAL) (T score from -1.1 to -2.4: OSTEOPENIA) (T score less than or equal to -2.5 to: OSTEOPOROSIS) Impression: Osteoporosis. Patients with diagnosis of osteoporosis or osteopenia should have regular bone mineral density assess ment. For those eligible for Medicare, routine testing is allowed once every 2 years. Testing frequ ency can be increased for patients who have rapidly progressing disease or for those who are receivin g medical therapy to restore bone mass. Reviewed by: Denilson Turner MD on 09/18/2022 5:34 PM PDT Approved by: Denilson Turner MD on 09/18/2022 5:34 PM PDT Station ID: [id number]
== END 2022-09-18 13:54 | disposition home or self-care (01) ==
LOC: DI 13:53
PROVIDERS: ATTEND Nurse Practitioner Family
DX: Z78.0 Asymptomatic menopausal state (principal); M81.0 Age-related osteoporosis without current pathological fracture

== ENCOUNTER 2022-09-24 14:36 | Outpatient (CLI) | payer MEDICARE ==
--- NOTE | 2022-09-24 15:36 | XRAY Report ---
PROCEDURE: Lumbar Spine 2 View INDICATIONS: LOW BACK PAIN,PAIN IN THORACIC SPINE TECHNIQUE: 3 views of the lumbar spine were acquired. COMPARISON: None. FINDINGS: Bones: 5 [id number] vertebrae are present. Grade 1 anterolisthesis of L4 on L5. Mild, multileve l degenerative disc disease. Suspect facet arthrosis L4-S1. Soft tissues: Overlying bowel gas pattern is normal. No suspicious soft tissue calcifications. IMPRESSION: Mild, multilevel degenerative disc disease. Facet arthrosis L4-S1. Grade 1 anterolisthesis of L4 on L5, likely related. Reviewed by: Gibran Banks on 09/24/2022 3:35 PM PDT Approved by: Gibran Banks on 09/24/2022 3:35 PM PDT Station ID: [id number]
--- NOTE | 2022-09-24 15:37 | XRAY Report ---
PROCEDURE: Thoracic Spine 2 View INDICATIONS: LOW BACK PAIN,PAIN IN THORACIC SPINE TECHNIQUE: 2 views of the thoracic spine were acquired. COMPARISON: None. FINDINGS: Bones: No fractures or dislocations. No suspicious bony lesions. 12 pairs of ribs are noted, and a ppear intact where visualized. Multilevel disc height loss, most prominent at T9-T11. Soft tissues: No paravertebral stripe thickening. IMPRESSION: Mild, multilevel degenerative disc disease. Reviewed by: Gibran Banks on 09/24/2022 3:36 PM PDT Approved by: Gibran Banks on 09/24/2022 3:36 PM PDT Station ID: [id number]
== END 2022-09-24 14:37 | disposition home or self-care (01) ==
LOC: DI.S 14:36
PROVIDERS: ATTEND Naturopath
DX: M51.36 Other intervertebral disc degeneration, lumbar region (principal); M47.817 Spondylosis without myelopathy or radiculopathy, lumbosacral region; M43.16 Spondylolisthesis, lumbar region; M51.34 Other intervertebral disc degeneration, thoracic region